=== PATIENT | female | born 1955 | race Caucasian/White ===

== ENCOUNTER 2020-03-23 13:48 | Inpatient (IN) | payer MEDICARE, MEDICAID ==
[~2020-03-23] VITALS: Ht 160 cm; Wt 46.5 kg
[2020-03-23] MEDS ORDERED: LACT1CAP19 PO (14:45)
[2020-03-23] MEDS ORDERED: POLY15DR27 OU (14:45)
[2020-03-23] MEDS ORDERED: RISP1TAB43 PO (14:45)
[2020-03-23] MEDS ORDERED: NYST15PO9 TP (14:45)
[2020-03-23] MEDS ORDERED: CLOT21CR7 VG (14:45)
[2020-03-23] MEDS ORDERED: ACET500T68 PO (14:45)
[2020-03-23] MEDS ORDERED: HALO5TAB PO (14:45)
[2020-03-23] MEDS ORDERED: POLY17PO5 PO (14:45)
[2020-03-23] MEDS ORDERED: DRON10CA5 PO (14:45)
[2020-03-23] MEDS ORDERED: ACET325T21 PO (14:45)
[2020-03-23] MEDS ORDERED: ACETAMINOPHEN 325 MG TABLET PO PRN (20:30)
[2020-03-23] MEDS ORDERED: HALOPERIDOL 5 MG TABLET PO PRN (20:30)
[2020-03-23] MEDS ORDERED: ACETAMINOPHEN 500 MG TABLET PO PRN (20:30)
[2020-03-23] MEDS ORDERED: POLYETHYLENE GLYCOL 3350 17 GM PACKET. PO PRN (20:30)
[2020-03-23] MEDS: LACTOBACILLUS RHAMNOSUS GG 1 CAPSULE. PO SCH (21:00)
[2020-03-23] MEDS: CLOTRIMAZOLE 1% VAGINAL CREAM 45GM TUBE. VG SCH (21:00)
[2020-03-23] MEDS: NYSTATIN TOPICAL POWDER 15GM BOTTLE. TP SCH (21:00)
[2020-03-23] MEDS: risperiDONE 1 MG TABLET. PO SCH (21:05)
[2020-03-23] MEDS: traZODone 100 MG TABLET. PO PRN ×2 (21:05→22:56)
[2020-03-23] MEDS: POLYVINYL ALCOHOL/POVIDONE/PF OPHTH SOLUTION DROPERETTE. OU SCH (21:15)
--- NOTE | 2020-03-23 21:55 | PDOC ---
Exam Note: Myke Note: Please also refer to the separate dictated note~for this date of service dictated separately.~Patient seen individually. Discussed the patient with Nursing staff reviewed the chart.~Reviewed interim history and current functioning. Reviewed vital signs,~Labs/ Radiology~and current medications noted below. Continue current treatment with the changes noted in the dictated addendum note Current Medications: Meds: Current Medications Medications (Trade) Dose Ordered Sig/Shila Route PRN Reason Start Time Stop Time Status Last Admin Dose Admin Risperidone (RisperDAL) 1 mg QHS PO 03/23/20 21:00 03/23/20 21:05 Olanzapine (ZyPREXA ZYDIS) 2.5 mg PRN Q2HR PRN PO PSYCHOSIS 03/23/20 20:45 03/23/20 21:05 Trazodone HCl (Desyrel) 100 mg PRN QHS PRN PO INSOMNIA, MAY REPEAT X1 03/23/20 20:45 03/23/20 21:05 I have reviewed the current psychotropics carefully including drug interactions. Risk benefit ratio favors no change other than as noted in my dictated progress note. CARLY AWAN MD Mar 23, 2020 21:55
[2020-03-23 22:17] VITALS: BP 146/82
[2020-03-23] MEDS ORDERED: METHYL SALICYLATE/MENTHOL TOPICAL OINTMENT 57GM TUBE. TP PRN (22:45)
[2020-03-23] MEDS ORDERED: MAG HYDROX/AL HYDROX/SIMETH 30 ML ORAL.SUSP PO PRN (22:45)
--- NOTE | 2020-03-23 23:27 | NUR ---
Admission Note with Justification for Admission to [facility] Patient admitted to [facility] for protective oversight for emergency stabilization of acute psychiatric crisis. Pt admitted from: [facility]/ [facility] Mode of arrival: EMS Accompanied By: EMS Precipitating behaviors that initiated intake and admission: hallucinating, verbally abusive toward staff, aggressive, screaming Description of failure of out patient attempts at stabilization in previous setting list behavior and medication trials: medication changes Behaviors and assessment findings upon admission: highly disorganized, restless, yelling out, hallucinating, delusional Plan: Admit for protective oversight for adjustment and stabilization of medications, behaviors and mood. Intense treatment regimen including groups, medication adjustments, therapy, consistent regimen for ADL's, self care, and sleep hygiene. Daily monitoring by Inpatient staff, Psychiatry, and Medical Physician.
[2020-03-24 05:49] VITALS: BP 116/67
[2020-03-24] MEDS: LACTOBACILLUS RHAMNOSUS GG 1 CAPSULE. PO SCH ×2 (08:06→20:20)
[2020-03-24] MEDS: POLYVINYL ALCOHOL/POVIDONE/PF OPHTH SOLUTION DROPERETTE. OU SCH ×3 (08:06→20:20)
[2020-03-24] MEDS: NICOTINE 7MG PATCH. TD SCH (08:09)
[2020-03-24 08:10] LABS: ALBUMIN 3.2 g/dL (3.4-5.0); ALBUMIN/GLOBULIN RATIO 0.8 (1.0-1.7); CALCIUM 9.7 mg/dL (8.5-10.1); CREATININE 0.9 mg/dL (0.6-1.0); GFR 63.2; POTASSIUM 3.6 mmol/L (3.5-5.1); TOTAL BILIRUBIN 0.2 mg/dL (0.2-1.0); TOTAL PROTEIN 7.1 g/dL (6.4-8.2)
[2020-03-24] MEDS: NYSTATIN TOPICAL POWDER 15GM BOTTLE. TP SCH ×2 (08:10→20:20)
[2020-03-24 08:23] LABS: BASO % 0 % (0-3); EOS # 0.1 x10^3/uL (0.0-0.7); EOS % 1 % (0-3); HEMATOCRIT 34.2 % (36.0-47.0); HEMOGLOBIN 11.2 g/dL (12.0-15.5); LYMPH % 35 % (24-48); MEAN CORPUSCULAR HEMOGLOBIN 32 pg (25-35); MEAN CORPUSCULAR HGB CONC 33 g/dL (31-37); MEAN CORPUSCULAR VOLUME 96 fL (79-100); MONO # 0.4 x10^3/uL (0.0-1.1); MONO % 6 % (0-9); NEUT # 3.4 x10^3uL (1.8-7.7); NEUT % 57 % (31-73); PLATELET COUNT 297 x10^3/uL (140-400); RED BLOOD COUNT 3.55 x10^6/uL (3.50-5.40); RED CELL DISTRIBUTION WIDTH 13.7 % (11.5-14.5); WHITE BLOOD COUNT 5.9 x10^3/uL (4.0-11.0)
[2020-03-24] MEDS: DRONABINOL 2.5 MG CAPSULE PO SCH ×2 (11:30→16:30)
--- NOTE | 2020-03-24 13:55 | CONS ---
DATE OF CONSULTATION: 03/24/2020 MEDICAL CONSULTATION AND HISTORY OF PRESENT ILLNESS ATTENDING PHYSICIAN: Dr. Kelley. HISTORY OF PRESENT ILLNESS: We are asked to see this patient for medical evaluation. The patient is age 64. She is from [facility]. She has increased agitation. 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 She is agitated, cursing out the medical staff, talking to people that are not there, and has behavioral issues. Much of the history is obtained from the old chart. There was a recent admission by Dr. Walls at [facility] following a fall. She was sent here for the [facility]. She has been very agitated, extremely aggressive to the staff. [facility]. PAST MEDICAL HISTORY: Gleaned from the old chart is significant for recent admission for right hip fracture open reduction and internal fixation, anxiety, depression, posterior cortical atrophy, osteoarthritis, and osteoporosis. She has cortical blindness. PAST SURGICAL HISTORY: Includes hysterectomy, bilateral wrist and forearm fracture after she fell and the right hip fracture, status post right hip hemiarthroplasty. ALLERGIES: SHE HAS ALLERGIES TO CODEINE, OXYCODONE. CURRENT MEDICATIONS: Reviewed. She was on Tylenol, Mylanta, artificial tears, clotrimazole, Marinol, Haldol, lactobacillus, multivitamin, Nicoderm patch, nystatin, Zyprexa, MiraLax, risperidone, and trazodone. FAMILY HISTORY: Unobtainable. SOCIAL HISTORY: She is residing at [facility]. She does smoke, the exact amount is unclear. She does not drink alcohol. Her daughter is the DPOA. REVIEW OF SYSTEMS: Unobtainable due to the patient's mentation. PHYSICAL EXAMINATION: GENERAL: When I saw her, this is an agitated female who was not aware of person, place, or time. INITIAL VITAL SIGNS: Here showed a blood pressure of 146/82 mmHg, pulse 75 and regular, temperature 97.3 degrees Fahrenheit, and her pulse oxygen saturation was 97% on room air. HEENT: Head is without trauma. Pupils are reactive. Sclerae are nonicteric. The oropharynx is clear. NECK: Supple, no bruits identified. LUNGS: Good breath sounds, otherwise shallow respirations. CARDIOVASCULAR: Showed regular heart tones. No gallops or murmurs. ABDOMEN: Nondistended, soft, nontender to palpation. No guarding or rebound tenderness. NEUROLOGIC: She has cortical blindness. Her tendon reflex is symmetrical in upper and lower extremities. She is able to move her extremities. We could not assess her gait. The rest of the detailed neurologic exam could not be done due to the patient's confusion and inability to cooperate. SKIN: Warm and dry. PERTINENT LABORATORY DATA: Her hemoglobin is 11.2 g/dL with a white count of 5900. Chemistry panel showed normal electrolytes, sodium 143 mEq, potassium 3.6 mEq per liter. Creatinine was 0.9 mg/dL, nonfasting blood sugar 113. Transaminases all within normal range. ASSESSMENT: 1. This 64-year-old female, half-way resident, has profound dementia with agitation. 2. She has a posterior cortical atrophy. 3. Clinical blindness. 4. Recent hip fracture with open reduction internal fixation. 5. Degenerative arthritis. 6. Generalized debilitation. RECOMMENDATIONS: 1. I reviewed her medications. 2. She is stable from a medical standpoint. 3. I reviewed her medications and the dosage is appropriate. I do not recommend any changes at this time. Thank you again for asking me to see this patient for medical consultation. We should gladly follow along closely during her inpatient stay. DONATO CHESTER MD DR: KENDRICK/evan JOB#: [id number] / [id number] CARLY Cheung MD, AHMED MD
--- NOTE | 2020-03-24 14:41 | RAD ---
EXAM: Head CT without contrast. HISTORY: Mental status changes. TECHNIQUE: Computed tomographic images of the head were obtained without contrast. *One or more of the following individualized dose reduction techniques were utilized for this examination: 1. Automated exposure control. 2. Adjustment of the mA and/or kV according to patient size. 3. Use of iterative reconstruction technique. COMPARISON: None. FINDINGS: There is no hemorrhage. There is moderate ventricular enlargement due to cerebral atrophy. There is decreased aeration within the cerebral white matter, likely due to chronic small vessel disease. There is no mass effect or midline shift. The orbits, paranasal sinuses mastoid air cells are unremarkable. No calvarial lesion is seen. IMPRESSION: 1. Moderate ventricular enlargement due to cerebral volume loss. This is advanced for patient age. The ventricular size is not greater than expected 4 cerebral volume to suggest hydrocephalus. 2. Bilateral cerebral white matter changes, likely due to chronic small vessel disease. 3. Note is made that MRI is more sensitive for acute infarction. Electronically signed by: Daphne Kim MD (03/24/2020 2:38 PM) [facility]
[2020-03-24 14:54] LABS: THYROID STIM HORMONE (TSH) 1.36 uIU/mL (0.358-3.740)
[2020-03-24 16:13] VITALS: BP 117/68
--- NOTE | 2020-03-24 18:03 | NUR ---
Pt slept a couple of hours in am. Since she has been awake, pt has been yelling out, whistling, cussing and yelling out for dtr Daphne. Pt has been restless and impulsive. Has been compliant with meds and redirection thus far.
[2020-03-24] MEDS: traZODone 100 MG TABLET. PO PRN ×2 (20:20→22:57)
[2020-03-24] MEDS: risperiDONE 1 MG TABLET. PO SCH (20:20)
[2020-03-24] MEDS: CLOTRIMAZOLE 1% VAGINAL CREAM 45GM TUBE. VG SCH (20:20)
--- NOTE | 2020-03-24 22:04 | PDOC ---
Exam Note: Myke Note: Please also refer to the separate dictated note~for this date of service dictated separately.~Patient seen individually. Discussed the patient with Nursing staff reviewed the chart.~Reviewed interim history and current functioning. Reviewed vital signs,~Labs/ Radiology~and current medications noted below. Continue current treatment with the changes noted in the dictated addendum note Assessment: Vital Signs/I&O: Vital Signs Date Time Temp Pulse Resp B/P (MAP) Pulse Ox O2 Delivery O2 Flow Rate FiO2 03/24/20 16:13 97.2 88 20 117/68 (84) 98 Room Air I & O 03/23/20 03/23/20 03/24/20 15:00 23:00 07:00 Intake Total 0 ml Balance 0 ml Labs: Laboratory Tests Test 03/24/20 07:35 White Blood Count 5.9 x10^3/uL (4.0-11.0) Red Blood Count 3.55 x10^6/uL (3.50-5.40) Hemoglobin 11.2 g/dL (12.0-15.5) L Hematocrit 34.2 % (36.0-47.0) L Mean Corpuscular Volume 96 fL (79-100) Mean Corpuscular Hemoglobin 32 pg (25-35) Mean Corpuscular Hemoglobin Concent 33 g/dL (31-37) Red Cell Distribution Width 13.7 % (11.5-14.5) Platelet Count 297 x10^3/uL (140-400) Neutrophils (%) (Auto) 57 % (31-73) Lymphocytes (%) (Auto) 35 % (24-48) Monocytes (%) (Auto) 6 % (0-9) Eosinophils (%) (Auto) 1 % (0-3) Basophils (%) (Auto) 0 % (0-3) Neutrophils # (Auto) 3.4 x10^3uL (1.8-7.7) Lymphocytes # (Auto) 2.0 x10^3/uL (1.0-4.8) Monocytes # (Auto) 0.4 x10^3/uL (0.0-1.1) Eosinophils # (Auto) 0.1 x10^3/uL (0.0-0.7) Basophils # (Auto) 0.0 x10^3/uL (0.0-0.2) Sodium Level 143 mmol/L (136-145) Potassium Level 3.6 mmol/L (3.5-5.1) Chloride Level 106 mmol/L (98-107) Carbon Dioxide Level 30 mmol/L (21-32) Anion Gap 7 (6-14) Blood Urea Nitrogen 12 mg/dL (7-20) Creatinine 0.9 mg/dL (0.6-1.0) Estimated GFR (Cockcroft-Gault) 63.2 BUN/Creatinine Ratio 13 (6-20) Glucose Level 113 mg/dL (70-99) H Calcium Level 9.7 mg/dL (8.5-10.1) Magnesium Level 2.0 mg/dL (1.8-2.4) Iron Level 45 ug/dL (50-170) L Total Iron Binding Capacity 213 ug/dL (250-450) L Iron Saturation 21 % (15-34) Total Bilirubin 0.2 mg/dL (0.2-1.0) Aspartate Amino Transferase (AST) 16 U/L (15-37) Alanine Aminotransferase (ALT) 21 U/L (14-59) Alkaline Phosphatase 103 U/L (46-116) Total Protein 7.1 g/dL (6.4-8.2) Albumin 3.2 g/dL (3.4-5.0) L Albumin/Globulin Ratio 0.8 (1.0-1.7) L Triglycerides Level 79 mg/dL (0-150) Cholesterol Level 216 mg/dL (0-200) H LDL Cholesterol, Calculated 141 mg/dL (0-100) H VLDL Cholesterol, Calculated 15 mg/dL (0-40) Non-HDL Cholesterol Calculated 156 mg/dL (0-129) H HDL Cholesterol 60 mg/dL (40-60) Cholesterol/HDL Ratio 3.0 Vitamin B12 Level > 2000 pg/mL (247-911) H 25-Hydroxy Vitamin D Total 26.5 ng/mL (30-100) L Thyroid Stimulating Hormone (TSH) 1.360 uIU/mL (0.358-3.740) Thyroxine (T4) 7.0 ug/dL (4.5-12.0) Total Triiodothyronine (TT3) 109 ng/dL (71-180) Treponema pallidum Antibody Nonreactive (Nonreactive) Current Medications: Meds: Current Medications Medications (Trade) Dose Ordered Sig/Shila Route PRN Reason Start Time Stop Time Status Last Admin Dose Admin Dronabinol (Marinol) 2.5 mg BIDACLD PO 03/24/20 11:30 03/24/20 16:30 Nicotine (Nicoderm Cq 7mg Patch) 1 patch DAILY TD 03/24/20 09:00 03/24/20 08:09 I have reviewed the current psychotropics carefully including drug interactions. Risk benefit ratio favors no change other than as noted in my dictated progress note. CARLY AWAN MD Mar 24, 2020 22:04
--- NOTE | 2020-03-24 22:45 | HP ---
ADMIT DATE: 03/24/2020 PSYCHIATRIC ADMISSION AND HISTORY AND EVALUATION On telehealth evaluation due to the COVID-19 restrictions. IDENTIFYING DATA: The patient is a 64-year-old female referred to us from [facility] where she was sent from the [facility] in [place] by Dr. Walls. She has a history of posterior cortical atrophy, legally blind, with worsening confusion and has been getting extremely delusional, verbally aggressive, hallucinating, unredirectable, screaming, cursing, both at the [facility] and at [facility]. Dr. Walls had attempted changes in her psychotropics, she has failed all of this, resulting in this referral. CHIEF COMPLAINT: "I am okay." The patient has been quite agitated, yelling, screaming since admission and staff had called me at night and quite disruptive all day during the day today as well. HISTORY OF PRESENT ILLNESS: The patient has a history of progressive memory deficits, paranoia, mood vacillation, sleep and appetite changes and diagnosis of posterior cortical atrophy and being legally blind, worsens her agitation. She also has major neurocognitive disorder, probably Alzheimer, vascular. No clear history of bipolar disorder. PAST PSYCHIATRIC HISTORY: As above. MEDICAL HISTORY: Positive for being legally blind, status post hip fracture repair 03/01/2020, dysphagia, aphasia, history of recurrent UTIs and she is a current smoker. ALLERGIES: CODEINE, OXYCODONE. CODE STATUS: DNR. DIET: Regular, finger foods due to eyesight problems. Medications, takes whole on spoon. UA positive at [facility]. She has completed a course on Rocephin. CURRENT PSYCHOTROPICS: Marinol 2.5 mg b.i.d. for appetite stimulation, Risperdal 1 mg at bedtime, Zyprexa p.r.n., trazodone 100 mg at bedtime p.r.n., may repeat x 1. FAMILY HISTORY: Noncontributory. SOCIAL HISTORY: No history of alcohol, drug abuse, physical, sexual or elder abuse. She is not known to be a perpetrator. REACTION TO HOSPITALIZATION: The patient oblivious of this. ASSETS: Supportive, living at the custodial, supportive family. REVIEW OF SYSTEMS: Legally blind. No CV, , GI, ENT system symptoms on review. MENTAL STATUS EXAMINATION: The patient is oriented to herself. Insight, judgment, recent and remote memory, attention, concentration, fund of knowledge poor, consistent with her diagnoses. IMPRESSION: Major neurocognitive disorder, multifactorial with delusion, depression, behavioral disturbance; posterior cortical atrophy; impulse control disorder; anxiety disorder, unspecified. Rest unchanged as above. PLAN: Admit to Geropsychiatry Unit at [facility]. I will see the patient daily individually from a psychiatric standpoint. Medical followup per Dr. Walls/Dr. Silveira. Continue the patient on her current psychotropics, Zyprexa was added p.r.n. Observe baseline, adjust further as clinically indicated. ESTIMATED LENGTH OF STAY: 10-12 days. DISPOSITION: Plans back to custodial when stable. MAN Gloria AWAN MD DR: JOANNA/evan JOB#: [id number] / [id number]
--- NOTE | 2020-03-24 23:22 | NUR ---
Nursing Note: Location of Patient during Assessment: Pt wandering in hallway at shift change. Behaviors Mood and Affect this shift: Anxious, very disorganized, restless and delusional with AH; yelling and calling out for others. Medication Compliant: Pt very disorganized with medications; attempted to administer them whole multiple times but pt would spit them out each time. Eventually, medications administered crushed in vanilla pudding although pt did not seem to enjoy this very much. Assessment Compliant: Pt disorganized and restless during assessment, having great difficulty following directions. Response After Interventions: Pt wandering, continues to be disorganized and restless with delusions and AH. PRN Zydis and repeat Trazodone administered around 2300.
[2020-03-25 02:06] LABS: HEMOGLOBIN A1C 5.6 % (4.8-5.6)
[2020-03-25 06:37] VITALS: BP 116/70
[2020-03-25] MEDS: POLYVINYL ALCOHOL/POVIDONE/PF OPHTH SOLUTION DROPERETTE. OU SCH ×3 (08:33→19:42)
[2020-03-25] MEDS: NICOTINE 7MG PATCH. TD SCH (08:33)
[2020-03-25] MEDS: LACTOBACILLUS RHAMNOSUS GG 1 CAPSULE. PO SCH ×2 (08:33→19:42)
[2020-03-25] MEDS: NYSTATIN TOPICAL POWDER 15GM BOTTLE. TP SCH ×2 (08:33→19:42)
--- NOTE | 2020-03-25 09:45 | NUR ---
ACTIVITY THERAPY ASSESSMENT Completed based on notes and interview. Pt. 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 Pt. was standing in front of her chair, mumbling/ talking mostly nonsensically throughout the entire interview. She was able to mention she was in a little pain today, while pointing to her hip area. Pt. struggled to answer questions, recall her last name, report why or where she was. She was unable to answer this/ that questions or yes/ no questions. She was able to say she goes by "Sultana," and throughout the interview, she clearly stated she wanted to smoke and wanted her purse. She talked with her eyes closed, staff later explaining she was visually impaired. Pt. needed physical support to sit in her chair and hand over hand to guide her drink/ straw to her mouth. Initial goal aimed to increase engagement: Pt. will participate in at least three individual Activity Therapy sessions before discharge.
--- NOTE | 2020-03-25 12:59 | NUR ---
Pt is confused, anxious, delusional, and it is questionable if she hallucinates as she is seeing impaired. She does respond to internal stimuli. She is compliant with her medication and assessment.
[2020-03-25] MEDS: DRONABINOL 2.5 MG CAPSULE PO SCH ×2 (13:03→16:07)
--- NOTE | 2020-03-25 13:22 | NUR ---
Patient has been provided with Practical Counseling for tobacco cessation. It included a face to face interaction and the following was discussed: Recognizing danger situations, Developing coping skills,Basic cessation information. Will follow for discharge needs and discharge planning.
--- NOTE | 2020-03-25 16:15 | NUR ---
Pt is delusional, disorganized, confused, hyperverbal and restless. She is unable to be redirected at this time. PRN gladys mendieta given.
[2020-03-25 16:20] VITALS: BP 133/89
[2020-03-25] MEDS ORDERED: CHOLECALCIFEROL (VITAMIN D3) 50,000 UNIT CAPSULE PO SCH (18:00)
[2020-03-25] MEDS: risperiDONE 1 MG TABLET. PO SCH (19:42)
[2020-03-25] MEDS: traZODone 100 MG TABLET. PO PRN (19:42)
[2020-03-25] MEDS: MIRTAZAPINE 7.5 MG TABLET. PO SCH (19:42)
[2020-03-25] MEDS: CLOTRIMAZOLE 1% VAGINAL CREAM 45GM TUBE. VG SCH (19:43)
--- NOTE | 2020-03-25 22:01 | PDOC ---
Exam Note: Myke Note: Please also refer to the separate dictated note~for this date of service dictated separately.~Patient seen individually. Discussed the patient with Nursing staff reviewed the chart.~Reviewed interim history and current functioning. Reviewed vital signs,~Labs/ Radiology~and current medications noted below. Continue current treatment with the changes noted in the dictated addendum note Assessment: Vital Signs/I&O: Vital Signs Date Time Temp Pulse Resp B/P (MAP) Pulse Ox O2 Delivery O2 Flow Rate FiO2 03/25/20 21:44 98.5 98 03/25/20 16:20 70 20 133/89 (104) 03/24/20 16:13 Room Air I & O 03/24/20 03/24/20 03/25/20 15:00 23:00 07:00 Intake Total 240 ml 340 ml Balance 240 ml 340 ml Current Medications: Meds: Current Medications Medications (Trade) Dose Ordered Sig/Shila Route PRN Reason Start Time Stop Time Status Last Admin Dose Admin Mirtazapine (Remeron) 7.5 mg QHS PO 03/25/20 21:00 03/25/20 19:42 I have reviewed the current psychotropics carefully including drug interactions. Risk benefit ratio favors no change other than as noted in my dictated progress note. Diagnosis: Problems: (1) Major neurocognitive disorder (2) Posterior cortical atrophy (3) Anxiety disorder, unspecified (4) Impulse control disorder, unspecified CARLY AWAN MD Mar 25, 2020 22:01
--- NOTE | 2020-03-25 23:37 | NUR ---
Nursing Note: Location of Patient during Assessment: Pt in [facility] at shift change. Behaviors Mood and Affect this shift: Pt restless, wandering, disorganized, and yelling out, responding to internal stimuli. Pt calling out for her daughter "Daphne". Medication Compliant: Pt compliant with medications administered crushed in pudding. Assessment Compliant: Pt cooperative with assessment and cares this evening. Response After Interventions: Pt assisted to her room by staff and helped into bed where she is currently resting with her eyes closed.
[2020-03-26 07:10] VITALS: BP 100/63
[2020-03-26 11:42] VITALS: BP 90/60
[2020-03-26] MEDS: NICOTINE 7MG PATCH. TD SCH (11:46)
--- NOTE | 2020-03-26 11:50 | NUR ---
Patient slept until 1100. When she got up she appeared diaphoretic. Vital signs obtained BP 90/60, P 110, O2 97% RA, Temp 98.[address] Walls on rounds. Held morning medications and only put nicotine patch on patient. Patient sitting in wheel chair with CNAs. Patient is very impulsive and unsteady. Addendum: 03/26/20 at 1235 by CORY MCFADDEN RN Spoke with Dr Kelley. After reviewing vital signs, patient behavior and medication list he gave the following orders: labs: CBC, CMP, CK d/c risperdal consult Dr. Del Toro - new onset twitching/jerking movement Dr. Alverto matos. Dr. Del Toro called and was informed of consult
[2020-03-26] MEDS: LACTOBACILLUS RHAMNOSUS GG 1 CAPSULE. PO SCH ×2 (11:53→21:26)
[2020-03-26] MEDS: POLYVINYL ALCOHOL/POVIDONE/PF OPHTH SOLUTION DROPERETTE. OU SCH ×3 (11:53→21:26)
[2020-03-26] MEDS: NYSTATIN TOPICAL POWDER 15GM BOTTLE. TP SCH ×2 (11:54→21:26)
[2020-03-26] MEDS: DRONABINOL 2.5 MG CAPSULE PO SCH ×2 (11:54→17:23)
[2020-03-26 15:07] LABS: ALBUMIN 3.3 g/dL (3.4-5.0); ALBUMIN/GLOBULIN RATIO 0.8 (1.0-1.7); CALCIUM 9.4 mg/dL (8.5-10.1); POTASSIUM 3.8 mmol/L (3.5-5.1); TOTAL BILIRUBIN 0.3 mg/dL (0.2-1.0); TOTAL PROTEIN 7.5 g/dL (6.4-8.2)
[2020-03-26 15:13] LABS: BASO % 0 % (0-3); EOS % 0 % (0-3); HEMOGLOBIN 11.8 g/dL (12.0-15.5); LYMPH # 0.8 x10^3/uL (1.0-4.8); LYMPH % 8 % (24-48); MEAN CORPUSCULAR HEMOGLOBIN 31 pg (25-35); MEAN CORPUSCULAR HGB CONC 32 g/dL (31-37); MEAN CORPUSCULAR VOLUME 99 fL (79-100); MONO # 0.5 x10^3/uL (0.0-1.1); MONO % 5 % (0-9); NEUT # 9.4 x10^3uL (1.8-7.7); NEUT % 88 % (31-73); PLATELET COUNT 277 x10^3/uL (140-400); RED BLOOD COUNT 3.74 x10^6/uL (3.50-5.40); RED CELL DISTRIBUTION WIDTH 14.3 % (11.5-14.5); WHITE BLOOD COUNT 10.8 x10^3/uL (4.0-11.0)
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
--- NOTE | 2020-03-26 16:12 | TX PLAN ---
Interdisciplinary Tx Plan Admission Information Mar 23, 2020 at 20:11 Legal Status (on Admission): Voluntary DPOA/Guardian Name: Daphne Marin Contact Other Contact Name: [facility] Other Contact Verified Code Status: DNR Allergies: Coded Allergies: codeine (Verified Allergy, Unknown, 03/23/20) oxycodone (Verified Allergy, Unknown, 03/23/20) Diagnoses Primary Diagnosis: Acute Delirium, Psychosis NOS Reasons for Admission: Aggressive, Delusions, Poor impulse control, Other Problem in Patient's Words: She has not been right since having her surgery and coming out of anesthia. Additional Admission Comments: According to the intake, pt was delusional, verbally aggressive, hallucinating and un-redirectable. Pt was screaming and cursing at staff Problems Active Problems: Delusional Impulsive Restless Inactive Problems: Medication compliance Pt Strengths/Limitations Ability for Harding: Poor Cognitive Functioning/Ability: Poor Communication Skills/Ability: Fair Financial Resources: Fair Insight/Judgement: Poor Intellectual Ability: Poor Physical Health: Poor Social Skills: Fair Stability in Family: Good Stability in School/Work: Poor Verbal Skills: Poor Discharge Criteria Discharge Criteria: No need for close observ., Adequate arrangements @DC, Improved behavior, Improved mood/thought Preliminary Discharge Plan Preliminary DC Plan: Current Living Arrange. Special Precautions Fall Risk: Moderate Initial D/C Plan Pt will discharge back to [facility] for continued rehab and possible LTC placement Identified Discharge Needs: Resources for continued psychiatric follow-up Currently Utilized Resources Currently Utilized Resources/P: Primary care physician Placement at [facility] Referrals Community Resources: Psychiatric services Identified Problems/Hx/Goals Objectives/Short-Term Goals Short Term Goals: Improved Social Skills, Medication Stabilization, Monitor Med Effects, Promote Coping Skill Short Term Goals in Patient's: N/A Interventions/Frequency Staff Interventions/Frequency&: Psychiatrist to assess pt at least 3x per week. Social Work to assess pt at least 2x per week (needs, barriers and discharge plans) Nursing to monitor medications, behaviors and complete 15 minute checks. 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 Education: Graduated high school (12th grade) Community Follow-up Primary Care physician Treatment Plan Explained Patient/Equipment Maintenance Tech had this treatment plan explained to him/her as indicated by the signature below and has been given the opportunity to ask questions and make suggestions: Date: Patient/Equipment Maintenance Tech Signature: Patient/Equipment Maintenance Tech Decline: No (Pt dtr is very active in pt care) MINGO SAL Mar 26, 2020 16:12
[2020-03-26 17:00] LABS: % BANDS 2 % (0-9); % LYMPHS 15 % (24-48); % MONOS 2 % (0-10); % SEGS 81 % (35-66)
[2020-03-26 17:01] LABS: PLT ESTIMATE ADEQUATE (ADEQUATE)
[2020-03-26] MEDS ORDERED: CHOLECALCIFEROL (VITAMIN D3) 50,000 UNIT CAPSULE PO SCH (18:00)
[2020-03-26] MEDS: MIRTAZAPINE 7.5 MG TABLET. PO SCH (21:26)
[2020-03-26] MEDS: CLOTRIMAZOLE 1% VAGINAL CREAM 45GM TUBE. VG SCH (21:26)
--- NOTE | 2020-03-26 22:01 | PDOC ---
Exam Note: Myke Note: Please also refer to the separate dictated note~for this date of service dictated separately.~Patient seen individually. Discussed the patient with Nursing staff reviewed the chart.~Reviewed interim history and current functioning. Reviewed vital signs,~Labs/ Radiology~and current medications noted below. Continue current treatment with the changes noted in the dictated addendum note Assessment: Vital Signs/I&O: Vital Signs Date Time Temp Pulse Resp B/P (MAP) Pulse Ox O2 Delivery O2 Flow Rate FiO2 03/26/20 11:42 98.3 110 17 90/60 (70) 97 Room Air I & O 03/25/20 03/25/20 03/26/20 14:59 22:59 06:59 Intake Total 560 ml 360 ml Balance 560 ml 360 ml Labs: Laboratory Tests Test 03/26/20 14:43 White Blood Count 10.8 x10^3/uL (4.0-11.0) Red Blood Count 3.74 x10^6/uL (3.50-5.40) Hemoglobin 11.8 g/dL (12.0-15.5) L Hematocrit 37.0 % (36.0-47.0) Mean Corpuscular Volume 99 fL (79-100) Mean Corpuscular Hemoglobin 31 pg (25-35) Mean Corpuscular Hemoglobin Concent 32 g/dL (31-37) Red Cell Distribution Width 14.3 % (11.5-14.5) Platelet Count 277 x10^3/uL (140-400) Neutrophils (%) (Auto) 88 % (31-73) H Lymphocytes (%) (Auto) 8 % (24-48) L Monocytes (%) (Auto) 5 % (0-9) Eosinophils (%) (Auto) 0 % (0-3) Basophils (%) (Auto) 0 % (0-3) Neutrophils # (Auto) 9.4 x10^3uL (1.8-7.7) H Lymphocytes # (Auto) 0.8 x10^3/uL (1.0-4.8) L Monocytes # (Auto) 0.5 x10^3/uL (0.0-1.1) Eosinophils # (Auto) 0.0 x10^3/uL (0.0-0.7) Basophils # (Auto) 0.0 x10^3/uL (0.0-0.2) Segmented Neutrophils % 81 % (35-66) H Band Neutrophils % 2 % (0-9) Lymphocytes % 15 % (24-48) L Monocytes % 2 % (0-10) Platelet Estimate Adequate (ADEQUATE) Sodium Level 140 mmol/L (136-145) Potassium Level 3.8 mmol/L (3.5-5.1) Chloride Level 104 mmol/L (98-107) Carbon Dioxide Level 31 mmol/L (21-32) Anion Gap 5 (6-14) L Blood Urea Nitrogen 15 mg/dL (7-20) Creatinine 1.0 mg/dL (0.6-1.0) Estimated GFR (Cockcroft-Gault) 56.0 BUN/Creatinine Ratio 15 (6-20) Glucose Level 114 mg/dL (70-99) H Calcium Level 9.4 mg/dL (8.5-10.1) Total Bilirubin 0.3 mg/dL (0.2-1.0) Aspartate Amino Transferase (AST) 19 U/L (15-37) Alanine Aminotransferase (ALT) 20 U/L (14-59) Alkaline Phosphatase 103 U/L (46-116) Creatine Kinase 76 U/L (26-192) Total Protein 7.5 g/dL (6.4-8.2) Albumin 3.3 g/dL (3.4-5.0) L Albumin/Globulin Ratio 0.8 (1.0-1.7) L Current Medications: Meds: Current Medications Medications (Trade) Dose Ordered Sig/Shila Route PRN Reason Start Time Stop Time Status Last Admin Dose Admin Vitamin D (Vitamin D3) 50,000 unit WEEKLY PO 03/26/20 18:00 03/26/20 17:24 I have reviewed the current psychotropics carefully including drug interactions. Risk benefit ratio favors no change other than as noted in my dictated progress note. Diagnosis: Problems: (1) Impulse control disorder, unspecified (2) Anxiety disorder, unspecified (3) Major neurocognitive disorder (4) Posterior cortical atrophy CARLY AWAN MD Mar 26, 2020 22:01
[2020-03-27 01:07] LABS: BASO % 0 % (0-3); EOS % 0 % (0-3); HEMATOCRIT 34.6 % (36.0-47.0); HEMOGLOBIN 11.3 g/dL (12.0-15.5); LYMPH # 1.2 x10^3/uL (1.0-4.8); LYMPH % 12 % (24-48); MEAN CORPUSCULAR HEMOGLOBIN 31 pg (25-35); MEAN CORPUSCULAR HGB CONC 33 g/dL (31-37); MEAN CORPUSCULAR VOLUME 96 fL (79-100); MONO # 0.6 x10^3/uL (0.0-1.1); MONO % 6 % (0-9); NEUT # 8.7 x10^3uL (1.8-7.7); NEUT % 82 % (31-73); PLATELET COUNT 256 x10^3/uL (140-400); RED BLOOD COUNT 3.61 x10^6/uL (3.50-5.40); RED CELL DISTRIBUTION WIDTH 14.3 % (11.5-14.5); WHITE BLOOD COUNT 10.6 x10^3/uL (4.0-11.0)
[2020-03-27 01:23] LABS: ALBUMIN/GLOBULIN RATIO 0.8 (1.0-1.7); CALCIUM 8.9 mg/dL (8.5-10.1); CREATININE 0.9 mg/dL (0.6-1.0); GFR 63.2; POTASSIUM 3.4 mmol/L (3.5-5.1); TOTAL BILIRUBIN 0.3 mg/dL (0.2-1.0); TOTAL PROTEIN 6.9 g/dL (6.4-8.2)
[2020-03-27 02:00] VITALS: BP 126/80
--- NOTE | 2020-03-27 04:09 | RAD ---
STUDY: CT chest without contrast INDICATION: Chest pain. Elevated d-dimer. COMPARISON: None available. TECHNIQUE: Helical CT imaging of the chest performed without the use of intravenous contrast. Sagittal and coronal reformats were obtained. One or more of the following individualized dose reduction techniques were utilized for this examination: 1. Automated exposure control 2. Adjustment of the mA and/or kV according to patient size 3. Use of iterative reconstruction technique. FINDINGS: Vasculature: Extensive calcific coronary artery disease. Nonaneurysmal aorta. The main pulmonary artery is normal in transverse dimension at 2.4 cm. Right more so than left carotid calcific atherosclerosis. Mediastinum/jeromy: Unremarkable. Lungs: No airspace infiltrate concerning for pneumonia. No pleural effusion or pneumothorax. There appear to be changes of emphysema. Pleural-based nodule at the right middle lobe, image 39 series 3, measures 4 mm. Neck/axilla/chest wall: No axillary adenopathy. Unremarkable thyroid. Relatively symmetric breast tissue. Bones: Exaggeration of thoracic kyphosis. Mild chronic wedging at the site of kyphotic curvature. Multifactorial degenerative changes. Osteopenia. Upper abdomen: Motion degraded. Apparent haziness of the pericolonic fat at the splenic flexure. There appears to be some fluid within the colonic lumen at the splenic flexure. IMPRESSION: 1. No acute abnormality to account for the patient's chest pain. 2. Extensive calcific coronary artery disease. Dense calcific atherosclerosis in the region of the right carotid bifurcation. 3. A pleural-based nodule at the right middle lobe measuring 4 mm. This does not meet size criteria for dedicated follow-up unless there are risk factors for lung malignancy which may be the case as there appears to be emphysema. Optional CT follow-up could be performed in 12 months. 4. Evaluation of the upper abdomen is made difficult due to motion but there may be some inflammation of the pericolonic fat at the splenic flexure. Additionally, apparent fluid within the colon at this location as can be seen with a diarrheal state. Recommend correlation for any symptoms referrable to the abdomen, particularly the bowel. 5. Osteopenia and multifocal degenerative changes on a background of exaggerated thoracic process. Electronically signed by: VALERIA AGUILAR MD (03/27/2020 4:06 AM) [id number]
--- NOTE | 2020-03-27 04:19 | NUR ---
Nursing Note the patient was located in her room for her assessment and medication pass. The patient was very disorganized and agitated. The patient was yelling out or people that are not there as well as intermittent episodes of tearfulness. The patient was noted to be hot to the touch when assessed by a STORAGE GARAGE MANAGER and this nurse was informed. The patient was found to have a fever of 100.7 and a pulse of 127@0138. Dr. Walls was called and orders for blood cultures, Chest CT, Bilateral lower extremity Venous Doppler ultrasound, CMP, CBC, Urine and C-Diff test. The patient was compliant with cares and assessments. The patients vitals were re assessed@0415 with a current temp of 101.4, pulse of 100, BP 96/64, and O2 of 94. The patient was given PRN Zyprexa prior to arriving in radiology. THe patient is currently resting in her bed.
[2020-03-27] MEDS ORDERED: NICO1PAT25 TD (04:48)
[2020-03-27] MEDS ORDERED: MIRT7.5T8 PO (04:49)
[2020-03-27] MEDS ORDERED: TRAZ-125 PO (04:51)
[2020-03-27] MEDS ORDERED: OLAN5TAB99 PO (04:52)
[2020-03-27] MEDS ORDERED: MAG-83 PO (04:56)
[2020-03-27] MEDS ORDERED: CHOL500021 PO (04:57)
--- NOTE | 2020-03-27 06:56 | RAD ---
STUDY: US VENOUS LOWER EXT BILATERAL INDICATION: Elevated d-dimer. Recent hip surgery. TECHNIQUE: Color-flow and pulsed wave duplex ultrasound with compression of venous structures of the bilateral lower extremities. COMPARISON: None. FINDINGS: Duplex ultrasound with compression of the deep venous structures of the bilateral lower extremities from the common femoral vein through the popliteal vein is negative for DVT. The posterior tibial veins are segmentally visualized and patent where seen. The peroneal veins were not able to be evaluated due to limitations with patient positioning. Normal venous waveforms and augmentation are noted throughout. IMPRESSION: No deep venous thrombosis seen throughout either lower extremity noting that the peroneal veins were unable to be assessed. Electronically signed by: VALERIA AGUILAR MD (03/27/2020 6:53 AM) [id number]
--- NOTE | 2020-03-27 06:59 | NUR ---
Tobacco Discharge Note [facility] Tobacco Hotline called with patient prior to discharge, YES Tobacco cessation medication listed with current medications for discharge. YES Transition Record was faxed to follow-up provider with the following elements: Reason for admission, procedures, tests, principal diagnosis, pending studies, patient instructions, 20/02 contact information for unit, phone number to obtain pending test results, plan for follow-up care, physician follow-up, advanced directive information, and medication list with dose, duration and instructions. This information was included in the following documents: History and physical, lab results, study results, progress notes, social work planning form, DC instruction form, patient visit summary, and medication reconciliation form. Date & time record faxed:0700 03/27/20 Record faxed to: ICU [facility] Record discussed with/ report given to: William VENTURA ICU
--- NOTE | 2020-03-27 07:00 | PDOC ---
Exam Note: Myke Note: This note is a late entry for 03/25/2020 covers elements not covered in my initial note. Subjective: The patient was evaluated face to face in the evening of 03/25/2020 with Dana VENTURA. The patient slept 3 hours previous night. Previous night she seemed to be responding to internal stimuli, quite disorganized, confused without visual hallucinations, hyperverbal at times. Review of Systems: No CV, , pulmonary, ENT system symptoms on review but she is blind with marked impairment of ambulation. Reliability poor. She was in the West hallway on the floor, disorganized, hyperverbal. Mental Status Exam: Oriented to herself. Insight and judgment, recent and remote memory, attention and concentration, fund of knowledge is poor consistent with her diagnoses. Laboratory Data: Reviewed. Impression: Posterior cortical atrophy. Anxiety disorder unspecified. Impulse control disorder unspecified. Psychotic disorder unspecified. Plan: Start Remeron 7.5 mg h.s. to help with insomnia. Continue rest unchanged for now. Assessment: Vital Signs/I&O: Vital Signs Date Time Temp Pulse Resp B/P (MAP) Pulse Ox O2 Delivery O2 Flow Rate FiO2 03/27/20 02:00 100.7 127 16 126/80 (95) 97 Room Air I & O 03/26/20 03/26/20 03/27/20 15:00 23:00 07:00 Intake Total 600 ml 120 ml Balance 600 ml 120 ml Labs: Laboratory Tests Test 03/26/20 14:43 03/27/20 00:50 White Blood Count 10.8 x10^3/uL (4.0-11.0) 10.6 x10^3/uL (4.0-11.0) Red Blood Count 3.74 x10^6/uL (3.50-5.40) 3.61 x10^6/uL (3.50-5.40) Hemoglobin 11.8 g/dL (12.0-15.5) L 11.3 g/dL (12.0-15.5) L Hematocrit 37.0 % (36.0-47.0) 34.6 % (36.0-47.0) L Mean Corpuscular Volume 99 fL (79-100) 96 fL (79-100) Mean Corpuscular Hemoglobin 31 pg (25-35) 31 pg (25-35) Mean Corpuscular Hemoglobin Concent 32 g/dL (31-37) 33 g/dL (31-37) Red Cell Distribution Width 14.3 % (11.5-14.5) 14.3 % (11.5-14.5) Platelet Count 277 x10^3/uL (140-400) 256 x10^3/uL (140-400) Neutrophils (%) (Auto) 88 % (31-73) H 82 % (31-73) H Lymphocytes (%) (Auto) 8 % (24-48) L 12 % (24-48) L Monocytes (%) (Auto) 5 % (0-9) 6 % (0-9) Eosinophils (%) (Auto) 0 % (0-3) 0 % (0-3) Basophils (%) (Auto) 0 % (0-3) 0 % (0-3) Neutrophils # (Auto) 9.4 x10^3uL (1.8-7.7) H 8.7 x10^3uL (1.8-7.7) H Lymphocytes # (Auto) 0.8 x10^3/uL (1.0-4.8) L 1.2 x10^3/uL (1.0-4.8) Monocytes # (Auto) 0.5 x10^3/uL (0.0-1.1) 0.6 x10^3/uL (0.0-1.1) Eosinophils # (Auto) 0.0 x10^3/uL (0.0-0.7) 0.0 x10^3/uL (0.0-0.7) Basophils # (Auto) 0.0 x10^3/uL (0.0-0.2) 0.0 x10^3/uL (0.0-0.2) Segmented Neutrophils % 81 % (35-66) H Band Neutrophils % 2 % (0-9) Lymphocytes % 15 % (24-48) L Monocytes % 2 % (0-10) Platelet Estimate Adequate (ADEQUATE) Sodium Level 140 mmol/L (136-145) 141 mmol/L (136-145) Potassium Level 3.8 mmol/L (3.5-5.1) 3.4 mmol/L (3.5-5.1) L Chloride Level 104 mmol/L (98-107) 105 mmol/L (98-107) Carbon Dioxide Level 31 mmol/L (21-32) 26 mmol/L (21-32) Anion Gap 5 (6-14) L 10 (6-14) Blood Urea Nitrogen 15 mg/dL (7-20) 14 mg/dL (7-20) Creatinine 1.0 mg/dL (0.6-1.0) 0.9 mg/dL (0.6-1.0) Estimated GFR (Cockcroft-Gault) 56.0 63.2 BUN/Creatinine Ratio 15 (6-20) 16 (6-20) Glucose Level 114 mg/dL (70-99) H 120 mg/dL (70-99) H Calcium Level 9.4 mg/dL (8.5-10.1) 8.9 mg/dL (8.5-10.1) Total Bilirubin 0.3 mg/dL (0.2-1.0) 0.3 mg/dL (0.2-1.0) Aspartate Amino Transferase (AST) 19 U/L (15-37) 17 U/L (15-37) Alanine Aminotransferase (ALT) 20 U/L (14-59) 19 U/L (14-59) Alkaline Phosphatase 103 U/L (46-116) 90 U/L (46-116) Creatine Kinase 76 U/L (26-192) Total Protein 7.5 g/dL (6.4-8.2) 6.9 g/dL (6.4-8.2) Albumin 3.3 g/dL (3.4-5.0) L 3.0 g/dL (3.4-5.0) L Albumin/Globulin Ratio 0.8 (1.0-1.7) L 0.8 (1.0-1.7) L D-Dimer (Celi) 10.37 mg/L (0.00-0.50) H Current Medications: Meds: Current Medications Medications (Trade) Dose Ordered Sig/Shila Route PRN Reason Start Time Stop Time Status Last Admin Dose Admin Vitamin D (Vitamin D3) 50,000 unit WEEKLY PO 03/26/20 18:00 03/26/20 17:24 I have reviewed the current psychotropics carefully including drug interactions. Risk benefit ratio favors no change other than as noted in my dictated progress note. Diagnosis: Problems: (1) Impulse control disorder, unspecified (2) Anxiety disorder, unspecified (3) Major neurocognitive disorder (4) Posterior cortical atrophy CARLY AWAN MD Mar 27, 2020 07:00
--- NOTE | 2020-03-27 07:28 | PDOC ---
Exam Note: Myke Note: This note is a late entry for 03/26/2020 covers elements not covered in my initial note. Subjective: The patient was evaluated face to face in the morning of 03/26/2020 for treatment team meeting with Aroldo (social service staff), Delaney, activity therapy, and Annmarie VENTURA along with the patients daughter Daphne attended the conference. She was also seen individually in the evening. We had a lengthy discussion. Daughter gave extensive history how the patient was having short-term memory deficits and repeated visits to [facility]rology Clinic at . 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 The patient slept 6-3/4 hours previous night. She is anxious, restless, somewhat jumpy, yelling at times, hyperverbal, hallucinating, delusional as a fall risk. Daughter gave appr oximate 10-year history of poor vision, progressively getting worse and then the progressive dementia. Review of Systems: Ambulation impaired in wheelchair with poor vision but she is unable to specify this. The patient remains hyperverbal, confused. No CV, , pulmonary, ENT system symptoms on review. Mental Status Exam: Oriented to herself. Insight and judgment, recent and remote memory, attention and concentration, fund of knowledge is poor consistent with her diagnoses. Laboratory Data: Reviewed. Impression: Posterior cortical atrophy. Major neurocognitive disorder multifactorial with delusion and depression. Anxiety disorder unspecified. Impulse control disorder unspecified. Plan: No change from initial note. Maintain Marinol for appetite stimulation. Nursing staff had called me as an emergency. The patient seemed more disorganized. There is a question as she was having marked sweating whether she might early beginnings of neuroleptic malignant syndrome. No temperature is noted. We will check CBC, CMP, creatinine kinase and go ahead and stop the Risperdal for now. Maintain Marinol and Remeron 7.5 mg h.s. and trazodone. Defer medical management to Dr. Walls. Adjust further as clinically indicated. Assessment: Vital Signs/I&O: Vital Signs Date Time Temp Pulse Resp B/P (MAP) Pulse Ox O2 Delivery O2 Flow Rate FiO2 03/27/20 02:00 100.7 127 16 126/80 (95) 97 Room Air I & O 03/26/20 03/26/20 03/27/20 15:00 23:00 07:00 Intake Total 600 ml 120 ml Balance 600 ml 120 ml Labs: Laboratory Tests Test 03/26/20 14:43 03/27/20 00:50 White Blood Count 10.8 x10^3/uL (4.0-11.0) 10.6 x10^3/uL (4.0-11.0) Red Blood Count 3.74 x10^6/uL (3.50-5.40) 3.61 x10^6/uL (3.50-5.40) Hemoglobin 11.8 g/dL (12.0-15.5) L 11.3 g/dL (12.0-15.5) L Hematocrit 37.0 % (36.0-47.0) 34.6 % (36.0-47.0) L Mean Corpuscular Volume 99 fL (79-100) 96 fL (79-100) Mean Corpuscular Hemoglobin 31 pg (25-35) 31 pg (25-35) Mean Corpuscular Hemoglobin Concent 32 g/dL (31-37) 33 g/dL (31-37) Red Cell Distribution Width 14.3 % (11.5-14.5) 14.3 % (11.5-14.5) Platelet Count 277 x10^3/uL (140-400) 256 x10^3/uL (140-400) Neutrophils (%) (Auto) 88 % (31-73) H 82 % (31-73) H Lymphocytes (%) (Auto) 8 % (24-48) L 12 % (24-48) L Monocytes (%) (Auto) 5 % (0-9) 6 % (0-9) Eosinophils (%) (Auto) 0 % (0-3) 0 % (0-3) Basophils (%) (Auto) 0 % (0-3) 0 % (0-3) Neutrophils # (Auto) 9.4 x10^3uL (1.8-7.7) H 8.7 x10^3uL (1.8-7.7) H Lymphocytes # (Auto) 0.8 x10^3/uL (1.0-4.8) L 1.2 x10^3/uL (1.0-4.8) Monocytes # (Auto) 0.5 x10^3/uL (0.0-1.1) 0.6 x10^3/uL (0.0-1.1) Eosinophils # (Auto) 0.0 x10^3/uL (0.0-0.7) 0.0 x10^3/uL (0.0-0.7) Basophils # (Auto) 0.0 x10^3/uL (0.0-0.2) 0.0 x10^3/uL (0.0-0.2) Segmented Neutrophils % 81 % (35-66) H Band Neutrophils % 2 % (0-9) Lymphocytes % 15 % (24-48) L Monocytes % 2 % (0-10) Platelet Estimate Adequate (ADEQUATE) Sodium Level 140 mmol/L (136-145) 141 mmol/L (136-145) Potassium Level 3.8 mmol/L (3.5-5.1) 3.4 mmol/L (3.5-5.1) L Chloride Level 104 mmol/L (98-107) 105 mmol/L (98-107) Carbon Dioxide Level 31 mmol/L (21-32) 26 mmol/L (21-32) Anion Gap 5 (6-14) L 10 (6-14) Blood Urea Nitrogen 15 mg/dL (7-20) 14 mg/dL (7-20) Creatinine 1.0 mg/dL (0.6-1.0) 0.9 mg/dL (0.6-1.0) Estimated GFR (Cockcroft-Gault) 56.0 63.2 BUN/Creatinine Ratio 15 (6-20) 16 (6-20) Glucose Level 114 mg/dL (70-99) H 120 mg/dL (70-99) H Calcium Level 9.4 mg/dL (8.5-10.1) 8.9 mg/dL (8.5-10.1) Total Bilirubin 0.3 mg/dL (0.2-1.0) 0.3 mg/dL (0.2-1.0) Aspartate Amino Transferase (AST) 19 U/L (15-37) 17 U/L (15-37) Alanine Aminotransferase (ALT) 20 U/L (14-59) 19 U/L (14-59) Alkaline Phosphatase 103 U/L (46-116) 90 U/L (46-116) Creatine Kinase 76 U/L (26-192) Total Protein 7.5 g/dL (6.4-8.2) 6.9 g/dL (6.4-8.2) Albumin 3.3 g/dL (3.4-5.0) L 3.0 g/dL (3.4-5.0) L Albumin/Globulin Ratio 0.8 (1.0-1.7) L 0.8 (1.0-1.7) L D-Dimer (Celi) 10.37 mg/L (0.00-0.50) H Current Medications: Meds: Current Medications Medications (Trade) Dose Ordered Sig/Shila Route PRN Reason Start Time Stop Time Status Last Admin Dose Admin Vitamin D (Vitamin D3) 50,000 unit WEEKLY PO 03/26/20 18:00 03/27/20 07:16 DC 03/26/20 17:24 I have reviewed the current psychotropics carefully including drug interactions. Risk benefit ratio favors no change other than as noted in my dictated progress note. Diagnosis: Problems: (1) Impulse control disorder, unspecified (2) Anxiety disorder, unspecified (3) Major neurocognitive disorder (4) Posterior cortical atrophy CARLY AWAN MD Mar 27, 2020 07:28
--- NOTE | 2020-03-27 22:02 | PDOC ---
Exam Note: Myke Note: Please also refer to the separate dictated note~for this date of service dictated separately.~Patient seen individually. Discussed the patient with Nursing staff reviewed the chart.~Reviewed interim history and current functioning. Reviewed vital signs,~Labs/ Radiology~and current medications noted below. Continue current treatment with the changes noted in the dictated addendum note Assessment: Vital Signs/I&O: Vital Signs Date Time Temp Pulse Resp B/P (MAP) Pulse Ox O2 Delivery O2 Flow Rate FiO2 03/27/20 02:00 100.7 127 16 126/80 (95) 97 Room Air I & O 03/26/20 03/26/20 03/27/20 15:00 23:00 07:00 Intake Total 600 ml 120 ml Balance 600 ml 120 ml Labs: Laboratory Tests Test 03/27/20 00:50 03/27/20 01:30 White Blood Count 10.6 x10^3/uL (4.0-11.0) Red Blood Count 3.61 x10^6/uL (3.50-5.40) Hemoglobin 11.3 g/dL (12.0-15.5) L Hematocrit 34.6 % (36.0-47.0) L Mean Corpuscular Volume 96 fL (79-100) Mean Corpuscular Hemoglobin 31 pg (25-35) Mean Corpuscular Hemoglobin Concent 33 g/dL (31-37) Red Cell Distribution Width 14.3 % (11.5-14.5) Platelet Count 256 x10^3/uL (140-400) Neutrophils (%) (Auto) 82 % (31-73) H Lymphocytes (%) (Auto) 12 % (24-48) L Monocytes (%) (Auto) 6 % (0-9) Eosinophils (%) (Auto) 0 % (0-3) Basophils (%) (Auto) 0 % (0-3) Neutrophils # (Auto) 8.7 x10^3uL (1.8-7.7) H Lymphocytes # (Auto) 1.2 x10^3/uL (1.0-4.8) Monocytes # (Auto) 0.6 x10^3/uL (0.0-1.1) Eosinophils # (Auto) 0.0 x10^3/uL (0.0-0.7) Basophils # (Auto) 0.0 x10^3/uL (0.0-0.2) D-Dimer (Celi) 10.37 mg/L (0.00-0.50) H Sodium Level 141 mmol/L (136-145) Potassium Level 3.4 mmol/L (3.5-5.1) L Chloride Level 105 mmol/L (98-107) Carbon Dioxide Level 26 mmol/L (21-32) Anion Gap 10 (6-14) Blood Urea Nitrogen 14 mg/dL (7-20) Creatinine 0.9 mg/dL (0.6-1.0) Estimated GFR (Cockcroft-Gault) 63.2 BUN/Creatinine Ratio 16 (6-20) Glucose Level 120 mg/dL (70-99) H Calcium Level 8.9 mg/dL (8.5-10.1) Total Bilirubin 0.3 mg/dL (0.2-1.0) Aspartate Amino Transferase (AST) 17 U/L (15-37) Alanine Aminotransferase (ALT) 19 U/L (14-59) Alkaline Phosphatase 90 U/L (46-116) Total Protein 6.9 g/dL (6.4-8.2) Albumin 3.0 g/dL (3.4-5.0) L Albumin/Globulin Ratio 0.8 (1.0-1.7) L Clostridioides difficile Toxin (PCR) Positive (NEGATIVE) H Current Medications: I have reviewed the current psychotropics carefully including drug interactions. Risk benefit ratio favors no change other than as noted in my dictated progress note. Diagnosis: Problems: (1) Impulse control disorder, unspecified (2) Anxiety disorder, unspecified (3) Major neurocognitive disorder (4) Posterior cortical atrophy CARLY AWAN MD Mar 27, 2020 22:02
--- NOTE | 2020-03-29 21:16 | DS ---
DATE OF DISCHARGE: 03/27/2020 DISCHARGE SUMMARY AND PSYCHIATRIC PROGRESS NOTE This late entry for 03/27/2020 covers the elements not covered in my initial note. IDENTIFYING DATA: The patient is a 64-year-old female referred to us from [facility] where she resides and was getting increasingly delusional, verbally aggressive, hallucinating, unredirectable, screaming, cursing at staff. She had failed outpatient psychiatric interventions, referred by primary care physician, Dr. Walls. Initially went to [facility] and then referred to us for inpatient psychiatric stabilization. The patient does have a history of posterior cortical atrophy with worsening delusions, hallucinations, agitation, and aggression. SIGNIFICANT FINDINGS AND CLINICAL COURSE: Following admission, the patient was seen daily individually by myself from a psychiatric standpoint, medical followup with Dr. Walls/Dr. Silveira. We obtained a fairly detailed past psychiatric history from the patient's daughter who is very knowledgeable on the patient's history, diagnosis of posterior cortical atrophy with worsening short-term memory deficits, hallucinations, delusions, aggression. Adjustments were made in her psychotropics, but she continued to have significant mood lability, yelling, cursing, actively hallucinating, some of which could be explained by the posterior cortical atrophy and visual misperceptions consequent to this. She seemed to be gradually showing some response to changes in her psychotropics and was sleeping better on Remeron 7.5 mg at bedtime, remained on Marinol 2.5 mg b.i.d. for appetite stimulation, Risperdal 1 mg at bedtime for psychotic symptoms, trazodone 100 mg at bedtime p.r.n., november repeat x 1. She remained hyperverbal. REVIEW OF SYSTEMS: Poor vision, impaired ambulation, in wheelchair. No CV, , pulmonary, ENT system symptoms on review. MENTAL STATUS EXAM: Oriented to herself. Insight, judgment, recent and remote memory, attention, concentration, fund of knowledge poor, consistent with her diagnosis. Gradually showing some response to treatment, but spiked a fever of 104. There was a COVID-19 positive patient detected on our unit and given this and a questionable history of sepsis, she was transitioned to the ICU per Dr. Walls for further medical stabilization. CONDITION AT DISCHARGE: Some improvement from a psychiatric standpoint, but medically compromised. FINAL DIAGNOSES: Major neurocognitive disorder, vascular with delusion, depression, behavioral disturbance, posterior cortical atrophy, anxiety disorder, unspecified; impulse control disorder, unspecified; possible sepsis. Rest unchanged from admission. DISCHARGE MEDICATIONS: Please refer to the [facility]. DISCHARGE INSTRUCTIONS: Psychiatric and medical followup in the ICU. MAN Gloria AWAN MD DR: JOANNA/evan JOB#: [id number] / [id number]
== END 2020-03-27 07:16 | disposition short-term general hospital (02) | DRG 56 ==
LOC: GEROPSY 20:11
PROVIDERS: ADMIT Psychiatry & Neurology Psychiatry; ATTEND Psychiatry & Neurology Psychiatry
DX: G30.9 Alzheimer's disease, unspecified (principal); A41.9 Sepsis, unspecified organism; F01.51 Vascular dementia, unspecified severity, with behavioral disturbance; R47.01 Aphasia; M19.90 Unspecified osteoarthritis, unspecified site; F32.9 Major depressive disorder, single episode, unspecified; F41.9 Anxiety disorder, unspecified; F63.9 Impulse disorder, unspecified; Z20.828 Contact with and (suspected) exposure to other viral communicable diseases; H54.8 Legal blindness, as defined in USA; M81.0 Age-related osteoporosis without current pathological fracture; Z66 Do not resuscitate; Z79.899 Other long term (current) drug therapy; Z87.440 Personal history of urinary (tract) infections; Z87.891 Personal history of nicotine dependence; Z90.710 Acquired absence of both cervix and uterus; Z91.81 History of falling; G31.9 Degenerative disease of nervous system, unspecified
CPT/HCPCS: 36415; 70450; 71250; 80053; 80061; 82306; 82550; 82607; 83036; 83540; 83550; 83735; 84436; 84443; 84480; 85007; 85025; 85379; 86592; 87040; 87493; 93970; Q0167; U0003-CS

== ENCOUNTER 2020-03-27 08:20 | Inpatient (IN) | payer MEDICARE, MEDICAID ==
[~2020-03-27] VITALS: Ht 160 cm; Wt 55.6 kg
[2020-03-27] VITALS (16 sets, daily range): BP systolic 89–165; BP diastolic 56–110
--- NOTE | 2020-03-27 07:15 | NUR ---
The patient, CHESTER HENRIQUEZ, 64 y/o, F admitted by BALAJI ISRAEL MD, was given written information regarding hospital policies, unit procedures and contact persons. Valuables were checked. Pt was wheeled down to ICU 4 by staff member and made comfortable into bed. pt came from [facility] unit.
[~2020-03-27 08:20] MED LIST: ACET325T21 PO; ACET500T68 PO; CHOL500021 PO; CLOT21CR7 VG; DRON10CA5 PO; HALO5TAB PO; LACT1CAP19 PO; MAG-83 PO; MIRT7.5T8 PO; NICO1PAT25 TD; NYST15PO9 TP; OLAN5TAB99 PO; POLY15DR27 OU; POLY17PO5 PO; RISP1TAB43 PO; TRAZ-125 PO
[2020-03-27] MEDS ORDERED: IV NORMAL SALINE 1,000ML 1,000 ML IV SCH (08:31)
[2020-03-27] MEDS ORDERED: IV NORMAL SALINE 1,000ML 1,000 ML IV ONE (08:45)
[2020-03-27] MEDS ORDERED: POLYVINYL ALCOHOL 1.4% OPHTH SOLUTION 15ML BOTTLE. OU SCH (09:00)
[2020-03-27] MEDS ORDERED: LACTOBACILLUS RHAMNOSUS GG 1 CAPSULE. PO SCH (09:00)
[2020-03-27] MEDS ORDERED: MAG HYDROX/AL HYDROX/SIMETH 30 ML ORAL.SUSP PO PRN (09:00)
[2020-03-27 10:28] LABS: HEMATOCRIT 35.6 % (36.0-47.0); HEMOGLOBIN 11.6 g/dL (12.0-15.5); RED BLOOD COUNT 3.71 x10^6/uL (3.50-5.40); RED CELL DISTRIBUTION WIDTH 14.2 % (11.5-14.5); WHITE BLOOD COUNT 14.4 x10^3/uL (4.0-11.0)
[2020-03-27 10:41] LABS: ALBUMIN 2.9 g/dL (3.4-5.0); ALBUMIN/GLOBULIN RATIO 0.7 (1.0-1.7); CALCIUM 9.1 mg/dL (8.5-10.1); MAGNESIUM 2.1 mg/dL (1.8-2.4); POTASSIUM 3.5 mmol/L (3.5-5.1); TOTAL BILIRUBIN 0.3 mg/dL (0.2-1.0); TOTAL PROTEIN 6.9 g/dL (6.4-8.2)
[2020-03-27 10:48] LABS: AMORPHOUS SEDIMENT,UR PRESENT /HPF; BACTERIA,URINE 0 /HPF (0-FEW); BILIRUBIN,URINE NEG (NEG); CLARITY,URINE CLEAR; COLOR,URINE YELLOW; GLUCOSE,URINE NEG (NEG); HYALINE CASTS, URINE FEW /HPF; NITRITE,URINE NEG (NEG); SQUAMOUS EPITHELIAL CELL,UR OCC /LPF; UROBILINOGEN,URINE 0.2 mg/dL (0.2 mg/dL)
[2020-03-27] MEDS: PIPERACILLIN/TAZOBACTAM 3.375 GM in IV NORMAL SALINE 50ML 50 ML IV SCH ×3 (12:13→23:26)
[2020-03-27] MEDS: ACETAMINOPHEN 325 MG TABLET PO PRN (12:16)
[2020-03-27] MEDS: NICOTINE 7MG PATCH. TD SCH (12:16)
[2020-03-27] MEDS: CHOLECALCIFEROL (VITAMIN D3) 50,000 UNIT CAPSULE PO SCH (12:16)
[2020-03-27] MEDS: NYSTATIN TOPICAL POWDER 15GM BOTTLE. TP SCH ×2 (12:16→20:41)
[2020-03-27] MEDS: ENOXAPARIN ** NOTE DOSE ** SYRINGE SQ SCH ×2 (12:16→20:15)
--- NOTE | 2020-03-27 14:30 | NUR ---
SW returned call to pt dtr, Daphne, to tell her to cancel the [facility] appointment that she mentioned on SW voicemail. Instead of having that conversation, pt began by telling SW that she is livid. SW questioned why and empathized knowing that pt was sent to ICU this morning. Pt dtr questioned who's responsibility is it to call the families when changes like that occur. SW explained that typically the nurse on pt case would be able to call the family to alert them of the change. Pt dtr reports that no one called her to tell her and her it was 1400 and she just heard from Dr. Walls. "This is fucking unacceptable and I want that nurse to be held accountable for not calling me. How can she be transferred in the morning and I'm not notified until 5 hours later?! I'm fucking livid and want someone's ass accountable and this place in their file. I get being busy but there is not excuse to not be called. And I'm not just anyone, that is MY MOTHER!". SW empathized and informed pt dtr that SW would alert the nurse manager machine and see if she could call pt dtr to discuss the process and what can be done. SW iterated with pt dtr that this is not a typical SW role when something medical comes up. Pt dtr questioned SW when she knew. BRIEN informed pt dtr that SW was told by the community cultural development officer at 10:00; however, SW felt that the pt who was covoid positive and caring for that situation at the time was more pressing as pt is downstairs and from what SW was told, being cared for. Pt dtr did not find that acceptable either, asking SW what was wrong with pt. BRIEN informed her that she does not know. All she was told was that pt was transferred downstairs but unsure of the reason. Pt dtr will plan to call a nurse manager machine on Monday if she does not hear from one today and will then attempt to contact ICU to see "what in the actual fuck is going on".
[2020-03-27] MEDS: POTASSIUM CL 40MEQ IN 0.9%NACL 1,000 ML IV SCH ×2 (16:17→23:27)
[2020-03-27] MEDS: VANCOMYCIN 125 MG/2.5 ML ORAL SOLUTION. PO SCH ×2 (17:17→20:15)
[2020-03-27] MEDS: HALOPERIDOL 5 MG TABLET PO PRN (17:17)
--- NOTE | 2020-03-27 19:34 | HP ---
ADMIT DATE: 03/27/2020 HISTORY OF PRESENT ILLNESS: The patient is a 64-year-old female patient, who was transferred from [facility] last night, early this morning on account of hypotension and sepsis. The patient was hypotensive, tachycardic and febrile. Her blood pressure dropped down to 90/60, heart rate was up to 130. Temperature went up to 100.7. She has had lab work done including a CBC, CMP. Her D-dimer was elevated at 10.37 and therefore we did basically sent blood, urine for culture and sensitivity. As she has multiple episodes of loose bowel movement, we sent also stool for C. diff toxins and was given a liter of normal saline and was transferred to the ICU and was continued on IV fluid, IV Zosyn as well as oral vancomycin. She is very difficult to vascular access. We did a CT scan of the chest, which basically showed no acute abnormality to account for the patient's chest pain. She has extensive calcific coronary artery disease, dense calcific atherosclerosis in the region of the right carotid bifurcation. She has also pleural based nodule in the right middle lobe measuring 4 mm. This does not meet the size criteria for indicated followup unless there are other risk factors for lung malignancy. Evaluation of the upper abdomen is more difficult due to motion, but there may be some inflammation of the pericolonic fat at the splenic flexure. Additionally, apparent fluid within the colon at this location can be seen with a dilated state. She has osteopenia and multifocal degenerative changes. We did order venous Doppler ultrasound, start her on Lovenox empirically and was transferred to the ICU with a suspicion that the patient might have sepsis due to UTI versus C. diff colitis. She has also elevated D-dimer, is concerning for deep vein thrombosis, pulmonary embolism, for which we did start her on Lovenox 1 mg/kg subcutaneously twice a day. PAST MEDICAL HISTORY: Significant for progressive memory deficit, paranoia, mood vacillation deep and appetite changes and diagnosis of posterior cortical atrophy being and legally blind worsens her agitation. She also has major neurocognitive disorder, probably Alzheimer, vascular. No clear history of bipolar disorder. PAST SURGICAL HISTORY: Significant for recent right hip fracture, status post right hip hemiarthroplasty. ALLERGIES: SHE IS ALLERGIC TO CODEINE, AND OXYCODONE. CODE STATUS: DNR. She is on a regular finger food diet due to her eyesight problems. FAMILY HISTORY: Noncontributory. SOCIAL HISTORY: She is currently a resident at [facility]. She continues to smoke, but does not drink alcohol or use any illicit drugs. Her daughter Daphne is her DPOA. PHYSICAL EXAMINATION: GENERAL: When I saw her today, she was resting slightly propped up in bed, no apparent distress, continued to be somewhat confused, hallucinating. She was somewhat pale, cachectic, but no jaundice, cyanosis or thyromegaly. No jugular venous distention. No limb edema. VITAL SIGNS: Her heart rate was 97, blood pressure was 120/74, temperature was 98.8, respiratory rate was 22 and oxygen saturation was 99%. HEAD, EYES, EARS, NOSE AND THROAT: Showed normocephalic, atraumatic. NECK: Supple. HEART: Showed normal first and second heart sounds. No gallop or murmur. CHEST: Clear to auscultation. No crepitation or rhonchi. ABDOMEN: Distended, soft, nontender. NEUROLOGIC: She is awake, alert; however, she is legally blind. All other cranial nerves are intact. EXTREMITIES: She moves extremities without difficulty. She does walk with a 2-person assist. LABORATORY DATA: Her lab work was done this morning while at [facility] showed a white cell count of 10,600, hemoglobin 11, hematocrit 34, MCV 96, and platelet count 256,000. Her chemistry this morning showed a serum sodium 141, potassium 3.4, chloride 105, bicarbonate 26, anion gap of 10, BUN 14, creatinine 0.9, estimated GFR was 63 mL per minute. Her glucose 120, calcium was 8.9. Total bilirubin, AST, ALT, alkaline phosphatase were normal. Total protein was 6.9, albumin 3. Her vitamin B12 was more than 2000 ____. Her 25-hydroxy vitamin D was 26.5. Her TSH was 1.360. Her total T4 was 7, total T3 was 109. Her hemoglobin A1c was 5.6. Her D-dimer was high at 10.37 and her treponema pallidum antibodies were nonreactive and coronavirus PCR was undetectable on March 23. Her C. diff toxin by PCR was positive. PLAN: This obviously came later after she was transferred to [address] [place] [address]. The patient was given liter of normal saline. We sent blood, urine culture and sensitivity, stool for C. diff toxin and where she was started on Zosyn 3.375 g IV every 6 hours as well as vancomycin 125 mg p.o. every 6 hours. We will continue with vancomycin with Lovenox 1 mg/kg subcutaneous twice a day. We will continue with all other medication and obviously will adjust her antibiotic according to the result of the blood and urine culture and sensitivity. We will consult Dr. Kelley, who assisted with her management ____ was not noting that I spoke with the [facility] and they really have not offered any much help. BALAJI ISRAEL MD DR: MELISSA/evan JOB#: [id number] / [id number]
[2020-03-27] MEDS: MIRTAZAPINE 7.5 MG TABLET. PO SCH (20:15)
[2020-03-27] MEDS: traZODone 100 MG TABLET. PO PRN (20:15)
[2020-03-27] MEDS: LACTOBACILLUS RHAMNOSUS GG 1 CAPSULE. PO SCH (20:16)
[2020-03-28] VITALS (15 sets, daily range): BP systolic 96–144; BP diastolic 55–80
[2020-03-28] MEDS: PIPERACILLIN/TAZOBACTAM 3.375 GM in IV NORMAL SALINE 50ML 50 ML IV SCH ×4 (05:37→23:25)
[2020-03-28 06:48] LABS: HEMATOCRIT 33.8 % (36.0-47.0); HEMOGLOBIN 10.9 g/dL (12.0-15.5); RED BLOOD COUNT 3.46 x10^6/uL (3.50-5.40); WHITE BLOOD COUNT 7.7 x10^3/uL (4.0-11.0)
[2020-03-28 07:03] LABS: ALBUMIN 2.7 g/dL (3.4-5.0); ALBUMIN/GLOBULIN RATIO 0.7 (1.0-1.7); CALCIUM 9.1 mg/dL (8.5-10.1); CREATININE 0.8 mg/dL (0.6-1.0); GFR 72.4; POTASSIUM 4.6 mmol/L (3.5-5.1); TOTAL BILIRUBIN 0.3 mg/dL (0.2-1.0); TOTAL PROTEIN 6.5 g/dL (6.4-8.2)
[2020-03-28] MEDS: POTASSIUM CL 40MEQ IN 0.9%NACL 1,000 ML IV SCH (07:08)
[2020-03-28] MEDS: ENOXAPARIN ** NOTE DOSE ** SYRINGE SQ SCH ×2 (08:33→20:09)
[2020-03-28] MEDS: VANCOMYCIN 125 MG/2.5 ML ORAL SOLUTION. PO SCH ×4 (08:33→20:08)
[2020-03-28] MEDS: LACTOBACILLUS RHAMNOSUS GG 1 CAPSULE. PO SCH ×2 (08:34→20:08)
[2020-03-28] MEDS: NYSTATIN TOPICAL POWDER 15GM BOTTLE. TP SCH ×2 (08:34→20:09)
[2020-03-28] MEDS: NICOTINE 7MG PATCH. TD SCH (08:34)
[2020-03-28] MEDS: HALOPERIDOL 5 MG TABLET PO PRN ×2 (13:20→20:08)
--- NOTE | 2020-03-28 17:19 | PN ---
DATE: 03/28/2020 SUBJECTIVE: The patient is resting, slightly propped up in bed, in no apparent distress. She apparently continued to be restless, agitated. She is completely confused and does not really keep conversation. Her coronavirus by PCR was not detected. Her blood culture so far is negative with no growth after one day. PHYSICAL EXAMINATION: GENERAL: When I examined her this afternoon, she looked well and was clearly in no apparent respiratory distress, pale. No jaundice, cyanosis or thyromegaly. No jugular venous distention. No limb edema. VITAL SIGNS: Her heart rate was 71, blood pressure was 101/55, temperature was 98, respiratory rate was 17 and oxygen saturation was 97%. HEAD, EYES, EARS, NOSE AND THROAT: Showed normocephalic, atraumatic. NECK: Supple. CARDIAC: Normal first and second heart sounds. No gallop or murmur. CHEST: Clear to auscultation. No crepitation or rhonchi. ABDOMEN: Distended, soft, nontender. NEUROLOGIC: She is awake, alert, but extremely confused. She is legally blind; however, all other cranial nerves are intact. She moves extremities without difficulty. She has an indwelling Gordillo catheter. Her intake over the last 24 hours was incompletely recorded. LABORATORY DATA: As of this morning, her white cell count is down to 7700, hemoglobin 11, hematocrit 33, MCV 98, and platelet count 225,000. Serum sodium was 145, potassium 4.6, chloride 113, bicarbonate 25, anion gap of 7, BUN 7, creatinine 0.8, estimated GFR was 72 mL per minute. Her glucose was 84, calcium was 9.1. Total bilirubin, AST, ALT, and alkaline phosphatase were normal. Total protein was 6.5 and albumin was 2.7. ASSESSMENT: 1. Clostridium difficile colitis for which she is on oral vancomycin. She had only one bowel movement this morning. Other medical problems include posterior cortical atrophy, being legally blind. 2. Progressive memory loss, paranoia, mood vacillation deep sleep and appetite changes with major neurocognitive disorder. The patient had recently right hip hemiarthroplasty. Her D-dimer was extremely high at 10; however, the venous Doppler ultrasound was negative for deep vein thrombosis. PLAN: My plan is obviously to discontinue IV fluid. Continue with oral vancomycin. Continue with all other medication. I will definitely arrange for her to have a CT angio of the chest to rule out the possibility of pulmonary emboli and if she does have one, she will probably require an IVC filter as it is very high fall risk and would not be a candidate for long-term anticoagulation. BALAJI ISRAEL MD DR: MELISSA/evan JOB#: [id number] / [id number]
[2020-03-28] MEDS: MIRTAZAPINE 7.5 MG TABLET. PO SCH (20:08)
[2020-03-28] MEDS: ACETAMINOPHEN 325 MG TABLET PO PRN (20:08)
[2020-03-28] MEDS: traZODone 100 MG TABLET. PO PRN ×2 (20:08→23:26)
[2020-03-29] MEDS: PIPERACILLIN/TAZOBACTAM 3.375 GM in IV NORMAL SALINE 50ML 50 ML IV SCH ×4 (04:49→23:54)
[2020-03-29 05:19] VITALS: BP 146/71
[2020-03-29] MEDS: LACTOBACILLUS RHAMNOSUS GG 1 CAPSULE. PO SCH ×2 (08:24→20:31)
[2020-03-29] MEDS: NICOTINE 7MG PATCH. TD SCH (08:24)
[2020-03-29] MEDS: ENOXAPARIN ** NOTE DOSE ** SYRINGE SQ SCH ×2 (08:28→20:30)
[2020-03-29] MEDS: VANCOMYCIN 125 MG/2.5 ML ORAL SOLUTION. PO SCH ×4 (09:14→20:31)
[2020-03-29] MEDS: NYSTATIN TOPICAL POWDER 15GM BOTTLE. TP SCH ×2 (09:14→20:32)
--- NOTE | 2020-03-29 13:17 | PN ---
DATE: 03/29/2020 SUBJECTIVE: The patient is resting flat in bed, in no apparent distress. She continued to be confused, hallucinating. Nursing staff stated that she generally ____ agitated, restless than before. PHYSICAL EXAMINATION: GENERAL: When I examined her, she looked pale, cachectic, but no jaundice, cyanosis or thyromegaly. No jugular venous distention. No lower limb edema. VITAL SIGNS: Her heart rate was 62, blood pressure was 146/71, temperature 97.1, respiratory rate 20, and oxygen saturation was 97%. HEAD, EYES, EARS, NOSE, AND THROAT: Showed normocephalic and atraumatic. NECK: Supple. CARDIAC: Normal first and second heart sounds. No gallop or murmur. CHEST: Clear to auscultation. No crepitation or rhonchi. ABDOMEN: Distended, soft, nontender. NEUROLOGIC: She is very confused, still hallucinating, talks to people that are not there. However, she is also legally blind. All her other cranial nerves intact. She moves extremities without difficulty, although she is mostly bedbound. Her intake over the last 24-hours was 2400, output was 2050. LABORATORY DATA: As of yesterday, her serum sodium was 145, potassium 4.6, chloride 113, bicarbonate 25, anion gap of 7, BUN 7, creatinine 0.8, estimated GFR was 72 mL per minute. Her glucose was 84, calcium was 9.1. Total bilirubin, AST, ALT, alkaline phosphatase were normal. Total protein 6.5, albumin was 2.7. White cell count was 7700, hemoglobin 10.9, hematocrit 33.8, MCV 98 and platelet count 225,000. Her blood cultures showed no growth after 2 days. Her coronavirus by PCR was not detected. Her stool for C. diff toxins were positive. ASSESSMENT: 1. Clostridium difficile colitis for which is now on oral vancomycin. She had multiple bowel movements overnight. 2. Other medical problems include posterior cortical atrophy and being legally blind. 3. Progressive memory loss, paranoia, mood vacillation, sleep and appetite changes with major neurocognitive disorder. 4. The patient recently had a right hip hemiarthroplasty. Her D-dimer was extremely high at 10. However, the venous Doppler ultrasound of both lower extremities were negative for deep vein thrombosis. PLAN: My plan is to continue with oral vancomycin. I will continue one more day with Zosyn and by tomorrow the blood cultures are negative, I will discontinue Zosyn. I will discontinue the Gordillo catheter. I will arrange to have a peripheral IV line and CT angio of the chest to rule out the possibility of pulmonary emboli, given markedly elevated D-dimer. BALAJI ISRAEL MD DR: MELISSA/evan JOB#: [id number] / [id number]
[2020-03-29 15:56] VITALS: BP 124/73
[2020-03-29] MEDS ORDERED: IV NORMAL SALINE 1,000ML 1,000 ML IV ONE (16:30)
[2020-03-29] MEDS ORDERED: IOHEXOL 350 MG/ML 100 ML VIAL. IV ONE (17:00)
--- NOTE | 2020-03-29 18:08 | RAD ---
CT ANGIOGRAPHY CHEST INDICATION: Reason: hypoxia and elevated D Dimer Comparison: 03/27/2020. TECHNIQUE: Following the uneventful administration of intravenous contrast, 98 cc Omnipaque 350, axial CT sections were obtained through the lungs and upper abdomen. Multiplanar reconstructions and MIP images were obtained. RS compliance statement: One or more of the following individualized dose reduction techniques were utilized for this examination: 1. Automated exposure control 2. Adjustment of the mA and/or kV according to patient size 3. Use of iterative reconstruction technique FINDINGS: Pulmonary arteries: No evidence of pulmonary thromboembolic disease. Lungs and Airways: No pulmonary mass or consolidation. Stable middle lobe 4 mm subpleural nodule (series 3 image 61). No abnormality of the central airways. Pleura: The pleural spaces are normal. Heart and Mediastinum: The visualized thyroid is normal in size and attenuation. No axillary or supraclavicular lymphadenopathy. No mediastinal, hilar or retrocrural lymphadenopathy. Normal cardiac size. Coronary artery atherosclerotic disease. The great vessels of the thorax are normal. Abdomen: Limited images through the upper abdomen show no abnormality of the visualized organs. Bones and Soft Tissues: Degenerative changes of the spine. IMPRESSION: 1. No evidence of pulmonary thromboembolic disease. 2. No pulmonary mass or consolidation. Electronically signed by: Matthew Pate MD (03/29/2020 6:05 PM) [facility]
[2020-03-29 19:45] VITALS: BP 134/67
[2020-03-29] MEDS: MIRTAZAPINE 7.5 MG TABLET. PO SCH (20:31)
[2020-03-29] MEDS: traZODone 100 MG TABLET. PO PRN (20:31)
--- NOTE | 2020-03-29 23:34 | CONS ---
DATE OF CONSULTATION: 03/27/2020 NEUROLOGIC CONSULTATION REFERRING PHYSICIAN: Dr. Kelley/Dr. Walls. REASON FOR CONSULTATION: New onset of abnormal movements. HISTORY OF PRESENT ILLNESS: This is a 64-year-old female patient at [facility] who was transferred last night to ICU because she was found to have hypotension at 90/60 and tachycardia at 130 with temperature of 100.7. Therefore, the patient has been evaluated for possible underlying systemic sepsis. Neuro consult was requested last night because the patient had abnormal movements of the upper and lower extremities. Initially, she has had a history of severe dementia with posterior cortical atrophy and blindness. Due to severe cognitive disorder, the patient is unable to provide any information. Prior to transfer, the patient had diarrhea. Therefore, she has been evaluated to rule out C. diff toxins. Empirically, the patient was placed on wide-spectrum antibiotics intravenously and COVID-19 test has been performed, the result is still pending. PAST MEDICAL HISTORY: Significant for progressive memory deficit, legal blindness, posterior cortical atrophy. PAST SURGICAL HISTORY: Positive for right hip fracture, required surgery. FAMILY HISTORY: Noncontributory. SOCIAL HISTORY: The patient is a resident at [facility]. She is a smoker, but there is no history of alcohol drinking or illicit drug use. CURRENT MEDICATIONS: Includes lorazepam, mirtazapine, vancomycin IV, Lovenox, Zosyn, artificial tear, nystatin, nicotine patches, vitamin D, trazodone, olanzapine, haloperidol, and Tylenol. ALLERGIES: CODEINE AND OXYCODONE. REVIEW OF SYSTEMS: A 10-point review of system was very limited due to advanced cognitive disorders suggestive of Alzheimer type of dementia. PHYSICAL EXAMINATION: GENERAL: Well-developed, well-nourished female, not in acute distress. She weighs 52 kilos. VITAL SIGNS: Blood pressure is 89/58, respiratory rate 20, pulse is 90 and regular, temperature 98.7, oxygen saturation is 99% on room air. HEENT: Normocephalic, atraumatic, otherwise unremarkable. NECK: Supple. Negative for carotid bruit, lymphadenopathy or thyromegaly. LUNGS: Clear to A and P. CARDIOVASCULAR: Regular rate and rhythm. Normal S1, S2. ABDOMEN: Soft. Bowel sounds positive. EXTREMITIES: Negative for cyanosis, clubbing or pitting edema. NEUROLOGIC: The patient is restless in bed. She has intermittent movements of the upper and lower extremities. She does not respond to simple commands appropriately. She is closing her eyes and when she was asked to open her eyes, she could not count fingers. The patient does not follow any commands and she is unable to communicate appropriately. Further evaluation of her mental status is very limited at this time due to underlying dementia. Cranial nerves: The patient opened her eyes briefly. The pupils are equal. There is no facial motor asymmetry. Hearing appeared to be intact. Further evaluation is limited at this time. Motor examination: No focal muscle bulk was seen. The patient had intermittent jerking movements of the right upper extremity and sometimes of the lower extremities. It is rhythmic, mainly the right hand. The patient moves her upper and lower extremities equally. Sensory examination appeared to be normal to pinprick and light touch senses. Deep tendon reflexes were hypoactive with absent Achilles responses. Gait not tested. DIAGNOSTIC DATA: Chest CT scan revealed no evidence of pulmonary embolism or mass or infiltration. LABORATORY DATA: CBC revealed white blood cells of 14,400, hemoglobin 11.6, hematocrit 35.6, platelet count 248,000. Chemistry revealed sodium of 142, potassium 3.5, chloride 106, CO2 of 24, BUN 17, creatinine 1, glucose 109. Liver enzymes are normal. Urinalysis is negative for urinary tract infections. Coronavirus PCR is not detected. Coagulation which revealed elevated D-dimer at 10.37. IMPRESSION: 1. Acute encephalopathy, presented with abnormal movements of the upper and lower extremities, rule out medication side effects and possible due to underlying systemic infections with leukocytosis. 2. Rule out elevated D-dimer. 3. Multiple medical problems include systemic sepsis, rule out C. diff toxins, posterior cortical atrophy may have contributed to the underlying and advanced vision loss/legal blindness. RECOMMENDATIONS: 1. Continue with current management initiated by Dr. Walls for possible underlying systemic infections. 2. Psychiatric consult with Dr. Kelley to review her psych medications. M Pierce RUIZ MD DR: SAPPHIRE/evan JOB#: [id number] / [id number]
[2020-03-30] MEDS: PIPERACILLIN/TAZOBACTAM 3.375 GM in IV NORMAL SALINE 50ML 50 ML IV SCH ×2 (05:39→11:34)
[2020-03-30 05:52] VITALS: BP 99/65
--- NOTE | 2020-03-30 07:07 | PDOC ---
Exam Note: Myke Note: This note is a late entry for 03/28/2020 covers elements not covered in my initial note. Subjective: I was called as an emergency by the nursing staff as the patient has been increasingly agitated in the ICU. She was transferred to the ICU from [facility] due to questionable sepsis and fever of 104 degrees. The fever has since subsided and medically per nursing report the patient is stabilizing but she has been extremely labile in her mood, intermittently hallucinating. She does have posterior cortical atrophy causing cortical blindness and questionable visual hallucinations versus visual stimuli consequent to posterior cortical atrophy. We had stopped the Risperdal before she left [facility] consequent to questionable neuroleptic malignant syndrome as part of her differential diagnosis. She has been spitting out all her medications, remains confused. Review of Systems: Ambulation impaired. Vision is poor and per nursing report no CV, , GI, ENT system symptoms on review. Mental Status Exam: Oriented to herself. Insight and judgment, recent and remote memory, attention and concentration, fund of knowledge is poor consistent with her diagnoses. Laboratory Data: Reviewed. Impression: Posterior cortical atrophy. Anxiety disorder unspecified. Impulse control disorder unspecified. Psychotic disorder unspecified. Plan: We discussed the option of using IM Haldol and Ativan combination. The patient does have IV access and given the questionable neuroleptic malignant syndrome even though that is not an active consideration at this time, we will avoid atypical antipsychotic, especially since the questionable visual hallucinations could be part of her posterior cortical atrophy. We will use Ativan 0.5 mg q.4h. p.r.n. anxiety and agitation, maximum 1 mg IV a day for now and then decide if we need to do anything further after that. Continue rest of the psychotropics. Assessment: Vital Signs/I&O: Vital Signs Date Time Temp Pulse Resp B/P (MAP) Pulse Ox O2 Delivery O2 Flow Rate FiO2 03/30/20 05:52 97.6 58 16 99/65 (76) 97 Room Air I & O 03/29/20 03/29/20 03/30/20 15:00 23:00 07:00 Intake Total 220 ml 120 ml Output Total 1150 ml Balance -930 ml 120 ml Current Medications: Meds: Current Medications Medications (Trade) Dose Ordered Sig/Shila Route PRN Reason Start Time Stop Time Status Last Admin Dose Admin Lorazepam (Ativan Inj) 1 mg 1X ONCE IVP 03/29/20 17:00 03/29/20 17:01 DC 03/29/20 16:50 I have reviewed the current psychotropics carefully including drug interactions. Risk benefit ratio favors no change other than as noted in my dictated progress note. Diagnosis: Problems: (1) Impulse control disorder, unspecified (2) Anxiety disorder, unspecified (3) Major neurocognitive disorder (4) Posterior cortical atrophy CARLY AWAN MD Mar 30, 2020 07:07
[2020-03-30] MEDS: LACTOBACILLUS RHAMNOSUS GG 1 CAPSULE. PO SCH ×2 (08:47→20:12)
[2020-03-30] MEDS: VANCOMYCIN 125 MG/2.5 ML ORAL SOLUTION. PO SCH ×4 (08:47→20:10)
[2020-03-30] MEDS: ENOXAPARIN ** NOTE DOSE ** SYRINGE SQ SCH (08:49)
[2020-03-30] MEDS: NICOTINE 7MG PATCH. TD SCH (08:49)
[2020-03-30] MEDS: NYSTATIN TOPICAL POWDER 15GM BOTTLE. TP SCH ×2 (08:50→20:13)
--- NOTE | 2020-03-30 09:27 | NUR ---
IP: patient test + for c diff, requires contact + precautions.
[2020-03-30 10:57] VITALS: BP 138/79
[2020-03-30 14:17] LABS: HEMATOCRIT 34.4 % (36.0-47.0); HEMOGLOBIN 11.2 g/dL (12.0-15.5); RED BLOOD COUNT 3.6 x10^6/uL (3.50-5.40); RED CELL DISTRIBUTION WIDTH 13.9 % (11.5-14.5); WHITE BLOOD COUNT 4.4 x10^3/uL (4.0-11.0)
[2020-03-30 14:28] LABS: ALBUMIN 2.8 g/dL (3.4-5.0); ALBUMIN/GLOBULIN RATIO 0.7 (1.0-1.7); CALCIUM 9.4 mg/dL (8.5-10.1); CREATININE 0.9 mg/dL (0.6-1.0); GFR 63.2; TOTAL BILIRUBIN 0.3 mg/dL (0.2-1.0); TOTAL PROTEIN 6.9 g/dL (6.4-8.2)
[2020-03-30 15:51] VITALS: BP 104/55
--- NOTE | 2020-03-30 15:52 | NUR ---
IP: Patient recent potential exposure to COVID-19, quarantine for two weeks from admission.
[2020-03-30] MEDS: ACETAMINOPHEN 325 MG TABLET PO PRN (16:51)
--- NOTE | 2020-03-30 17:34 | NUR ---
PATIENT BECAME RESTLESS THIS AFTERNOON, KEEP TRYING TO GET UP, PATIENT WAS REDIRECTED SEVERAL TIMES WITHOUT SUCCESS. PATIENT GIVEN ZYPREXA PRN ORDERED WITHOUT IMPROVEMENT, PATIENT CONTINUOUSLY TRYING TO GET UP WITHOUT ASSIST. PATIENT GIVEN ATIVAN ORDERED TO REDUCE RESTLESSNESS AND PROMOTE REST. PATIENT IS CURRENTLY IN A BED RESTING COMFORTABLY. WILL CONTINUE TO MONITOR.
--- NOTE | 2020-03-30 18:29 | PN ---
DATE: 03/30/2020 SUBJECTIVE: The patient is resting, slightly propped up in bed, in no apparent distress, somewhat sleepy today, has had no further episode of diarrhea at least so far. We did manage to do CT angio of the chest, which basically showed no evidence of pulmonary thromboembolic disease, no pulmonary mass or consolidation. PHYSICAL EXAMINATION: GENERAL: When I examined her, she was somewhat pale, cachectic, but no jaundice, cyanosis or thyromegaly. No jugular venous distention. No lower limb edema. VITAL SIGNS: Her heart rate was 59, blood pressure was 138/79, temperature was 98.2, respiratory rate was 18 and oxygen saturation was 99% on room air. HEAD, EYES, EARS, NOSE AND THROAT: Showed normocephalic, atraumatic. NECK: Supple. HEART: Showed normal first and second heart sounds. No gallop or murmur. CHEST: Clear to auscultation. No crepitation or rhonchi. ABDOMEN: Distended, soft, nontender. NEUROLOGIC: She is confused, legally blind, but otherwise all her cranial nerves are intact. She moves extremities without difficulty. Her intake over the last 24 hours was 2070, output was 2250. LABORATORY DATA: Today's labs are still pending at the time of this dictation. Her blood cultures showed no growth after 3 days. PLAN: My plan is to discontinue Zosyn. I would also change her Lovenox to therapeutic dose only. We will continue with oral vancomycin. Continue with physical and occupational therapy. We will continue with physical and occupational therapy. We obviously eventually have to transfer her up to the [facility] to continue the inpatient psychiatric stabilization. BALAJI ISRAEL MD DR: MELISSA/evan JOB#: [id number] / [id number]
[2020-03-30 19:33] VITALS: BP 145/98
[2020-03-30] MEDS: HALOPERIDOL 5 MG TABLET PO PRN (20:11)
[2020-03-30] MEDS: traZODone 100 MG TABLET. PO PRN ×2 (20:12→21:54)
[2020-03-30] MEDS: MIRTAZAPINE 7.5 MG TABLET. PO SCH (20:12)
--- NOTE | 2020-03-30 22:33 | NUR ---
Pt was very agitated when approached for assessment. Pt tried to get up out of bed multiple times w/o assistance. Pt was unable to obtain education on using call light. Pt was oriented only to self. Pt tolerated HS medications well. Pt was given Trazodone and Haldol w/ HS Meds as indicated. Pt called out of room and attempted to get out of bed after medications were given. Pt. was given repeat Trazodone and has now calmed down. Tab alarm is placed on pt. Will continue to monitor.
[2020-03-31 05:16] VITALS: BP 128/77
[2020-03-31] MEDS: VANCOMYCIN 125 MG/2.5 ML ORAL SOLUTION. PO SCH ×4 (07:46→20:06)
[2020-03-31] MEDS: LACTOBACILLUS RHAMNOSUS GG 1 CAPSULE. PO SCH ×2 (07:46→20:07)
[2020-03-31] MEDS: NICOTINE 7MG PATCH. TD SCH (07:47)
[2020-03-31] MEDS: ENOXAPARIN 40 MG/0.4 ML SYRINGE. SQ SCH (07:47)
[2020-03-31] MEDS: NYSTATIN TOPICAL POWDER 15GM BOTTLE. TP SCH ×2 (07:49→20:07)
[2020-03-31 10:21] VITALS: BP 145/78
--- NOTE | 2020-03-31 13:49 | PN ---
DATE: 03/31/2020 SUBJECTIVE: The patient is sitting comfortably in her bed, in no apparent distress. She continued to be confused; however, she was able to get with the assistance to the bedside commode and was continent and managed to empty her bladder. She has had no diarrhea today. PHYSICAL EXAMINATION: GENERAL: When I examined her, she looked pale, cachectic, but not jaundiced, cyanosed or thyromegaly. No jugular venous distention. No limb edema. VITAL SIGNS: Her heart rate was 71, blood pressure was 145/78, temperature 97.7, respiratory rate was 16, and oxygen saturation was 97% on room air. HEENT: Showed normocephalic, atraumatic. NECK: Supple. HEART: Showed normal first and second heart sounds. No gallop or murmur. CHEST: Clear to auscultation. No crepitation or rhonchi. ABDOMEN: Distended, soft, nontender. NEUROLOGIC: She is very confused, has cortical blindness, but all other cranial nerves are intact. She moves extremities without difficulty. She does have muscle wasting. Her intake over the last 24 hours was 2070, output was 1150. LABORATORY DATA: Her most recent lab work showed a white cell count of 4400, hemoglobin 11, hematocrit 34, MCV 96, and platelet count of 276,000. Her chemistry showed a serum sodium 144, potassium 4, chloride 108, bicarbonate 28, anion gap of 8, BUN 6, creatinine 0.9, estimated GFR was 63 mL per minute. Her glucose was 94, calcium was 9.4. Total bilirubin, AST, ALT, alkaline phosphatase were normal. Total protein was 6.9, albumin was 2.9. Her COVID by PCR was not detectable. ASSESSMENT: 1. Clostridium difficile colitis, sepsis, likely due to above. Her blood cultures continued to be negative and I discontinued her Zosyn. 2. Other medical problems include posterior cortical atrophy and being legally blind. 3. Progressive memory loss, paranoia and mood vacillation, sleep and appetite changes of major neurocognitive disorder, right hip hemiarthroplasty with poor mobility. Her D-dimer was extremely high at 10. However, her venous Doppler ultrasound of both lower extremities is negative. CT chest angiogram was negative for DVT while indicative for pulmonary emboli. PLAN: To continue with oral vancomycin. Continue with nutritional support. Continue DVT prophylaxis. Continue with physical and occupational therapy. Continue with all psychotropic medication as recommended by the psychiatrist. BALAJI ISRAEL MD DR: MELISSA/evan JOB#: [id number] / [id number]
--- NOTE | 2020-03-31 14:38 | NUR ---
NURSING NOTE WHILE ATTEMPTING TO CHECK ON PT AND REPOSITION, PT FOUND WITH HER LEGS HANGING OFF THE SIDE OF THE BED. THIS NURSE SPEAKING WITH PT INSTRUCTED PT TO SCOOT HER BOTTOM BACK TOWARDS THE MIDDLE OF THE BED FOR SAFETY, PT YELLING AND BEING VERBALLY ABUSIVE TOWARD STAFF. UNABLE TO REDIRECT PT AT THIS TIME. PRN ZYPREXA GIVEN. WILL CONTINUE TO MONITOR. LORENZO TY.
[2020-03-31 14:56] VITALS: BP 115/67
[2020-03-31 19:35] VITALS: BP 153/91
[2020-03-31] MEDS: traZODone 100 MG TABLET. PO PRN (20:06)
[2020-03-31] MEDS: MIRTAZAPINE 7.5 MG TABLET. PO SCH (20:06)
[2020-03-31] MEDS: HALOPERIDOL 5 MG TABLET PO PRN (20:07)
[2020-04-01 00:20] VITALS: BP 163/77
[2020-04-01 06:36] LABS: CALCIUM 9.6 mg/dL (8.5-10.1); CREATININE 0.9 mg/dL (0.6-1.0); GFR 63.2
[2020-04-01 06:39] VITALS: BP 106/66
[2020-04-01] MEDS: LACTOBACILLUS RHAMNOSUS GG 1 CAPSULE. PO SCH ×2 (08:26→20:19)
[2020-04-01] MEDS: VANCOMYCIN 125 MG/2.5 ML ORAL SOLUTION. PO SCH ×4 (08:26→20:19)
[2020-04-01] MEDS: NICOTINE 7MG PATCH. TD SCH (08:26)
[2020-04-01] MEDS: ENOXAPARIN 40 MG/0.4 ML SYRINGE. SQ SCH (08:27)
[2020-04-01] MEDS: NYSTATIN TOPICAL POWDER 15GM BOTTLE. TP SCH ×2 (09:00→20:35)
--- NOTE | 2020-04-01 10:25 | NUR ---
BRIEN and the Senior Behavioral Director contacted pt dtr, Daphne, to discuss her concerns about the transfer to the medical floor. Pt dtr appreciated the call back and reports that she has since calmed down and is no longer angry. Pratima, the Director, informed pt dtr that all nurses have been talked to about this situation and it is evident that communication between the units was poor. All parties empathized with one another in that we all are advocates for those who are not able to communicate themselves and Daphne reports she has to be the biggest advocate. "I don't know if you've noticed but my mother is like a non-verbal autistic child". BRIEN and Daphne discussed pt medications under the direction of Pratima filling in on the nursing perspective. Daphne reports that she does keep in contact with nursing staff downstairs and is questioning next steps. BRIEN explained that she would have to contact the psychiatrist to see if he will start her psych medications, as she is continuing to get medically stable. In treatment team it was discussed that pt would start on Depakote in which BRIEN explained that labs would be involved to ensure that she will remain therapeutic. Once BRIEN is able to meet with the psychiatrist, BRIEN will contact pt dtr Daphne with those updates. Daphne and all parties again, appreciated the call and will continue to follow up with Daphne as pt case progresses. No further concerns were noted.
[2020-04-01 10:53] VITALS: BP 136/80
[2020-04-01] MEDS: POTASSIUM CHLORIDE 20 MEQ TABLET.ER. PO SCH ×2 (11:59→16:53)
--- NOTE | 2020-04-01 12:34 | PN ---
DATE: 04/01/2020 ATTENDING PHYSICIAN: Dr. Walls, Dr. Chester. SUBJECTIVE: Very comfortable. She is pleasantly confused. No agitation, no further diarrhea today. OBJECTIVE FINDINGS: VITAL SIGNS: Her temperature today is 98.3 degrees Fahrenheit, blood pressure 115/67 mmHg, oxygen saturation 98% on room air, pulse 68 and regular. HEENT: She has cortical blindness. NECK: Supple. Oropharynx clear. LUNGS: Otherwise clear. CARDIOVASCULAR: Showed regular heart tones. No gallops. ABDOMEN: Soft, no guarding or rebound tenderness. Bowel sounds are normoactive. EXTREMITIES: Showed no cyanosis or edema. NEUROLOGIC: Pleasantly confused, cortical blindness. No focal deficits. Speech is fluent. SKIN: Warm and dry. PERTINENT LABORATORY DATA: Laboratory studies repeated today. Potassium is down to 3.0 mEq per liter, sodium 145. No diuretics. ASSESSMENT: 1. A 64-year-old female with COVID positive coronavirus swab. She is asymptomatic. 2. Clostridium difficile colitis, treated. 3. Posterior cortical atrophy. She is legally blind. 4. Progressive memory loss, paranoia, mood isolation and dementia. PLAN: 1. Meds reviewed. 2. Potassium supplementation. 3. Continue oral vancomycin. 4. Psychiatric meds per Dr. Kelley. 5. Follow up swabs when available. DONATO CHESTER MD DR: KENDRICK/evan JOB#: [id number] / [id number]
[2020-04-01 15:27] VITALS: BP 123/61
--- NOTE | 2020-04-01 15:33 | NUR ---
NSG NOTE; DR CAI TELEPHONE CONSULT DR CAI CALLED HERE AND WAS UPDATED ON PT'S BEHAVIORS, SLEEPING & EATING HABITS NEW MEDICATION ORDERS RECEIVED
[2020-04-01 20:17] VITALS: BP 152/78
[2020-04-01] MEDS: HALOPERIDOL 5 MG TABLET PO PRN (20:19)
[2020-04-01] MEDS: traZODone 100 MG TABLET. PO PRN (20:19)
[2020-04-01] MEDS: MIRTAZAPINE 7.5 MG TABLET. PO SCH (20:35)
--- NOTE | 2020-04-01 23:02 | NUR ---
Pt was sitting up and yelling out when approached for assessment. Pt seemed to calm when this nurse entered the room. Pt is only orientated to self. Pt was safely transferred to BSC and back to bed w/ assist x1. Pt was given a snack and water w/ HS meds. Pt took HS meds whole and tolerated it well. Pt calmed down after assessment and stopped yelling out. Pt is resting comfortably in bed w/o displaying any behaviors. Will continue to monitor.
[2020-04-02] MEDS: ACETAMINOPHEN 325 MG TABLET PO PRN ×2 (00:50→22:34)
[2020-04-02 06:09] VITALS: BP 108/64
[2020-04-02] MEDS: POTASSIUM CHLORIDE 20 MEQ TABLET.ER. PO SCH ×2 (08:02→16:30)
[2020-04-02] MEDS: HALOPERIDOL 5 MG TABLET PO PRN ×2 (08:03→14:27)
[2020-04-02] MEDS: LACTOBACILLUS RHAMNOSUS GG 1 CAPSULE. PO SCH ×2 (08:03→20:02)
[2020-04-02] MEDS: NICOTINE 7MG PATCH. TD SCH (08:04)
[2020-04-02] MEDS: ENOXAPARIN 40 MG/0.4 ML SYRINGE. SQ SCH (08:04)
[2020-04-02] MEDS: VANCOMYCIN 125 MG/2.5 ML ORAL SOLUTION. PO SCH ×4 (08:11→20:02)
[2020-04-02] MEDS: OLANZapine 5 MG TABLET PO SCH (08:59)
[2020-04-02] MEDS: NYSTATIN TOPICAL POWDER 15GM BOTTLE. TP SCH ×2 (09:00→20:03)
[2020-04-02 10:20] VITALS: BP 132/73
--- NOTE | 2020-04-02 11:44 | PN ---
DATE: 04/02/2020 ATTENDING PHYSICIAN: Dr. Walls. SUBJECTIVE: The patient remains confused. Her speech is rambling, very tangential in nature. Unfortunately, she does not make any sense. No respiratory distress. OBJECTIVE FINDINGS: VITAL SIGNS: Blood pressure today is 132/73, pulse 90 and regular, temperature 97.4 degrees Fahrenheit, oxygen saturation 98% on room air. HEENT: Head is without trauma. Pupils are reactive. Sclerae nonicteric. NECK: Supple. LUNGS: Clear. CARDIOVASCULAR: Showed regular heart tones. ABDOMEN: Soft. EXTREMITIES: Without edema. NEUROLOGIC: She is agitated. She is cortically blind. Her speech is rambling. She is not aware of person, place or time. ASSESSMENT: 1. A 64-year-old female with profound dementia. 2. COVID-19 positive swab from the [facility]. She remains asymptomatic. 3. Recent Clostridium difficile colitis, treated. 4. Posterior cortical atrophy, legally blind. 5. Progressive dementia, memory loss, paranoia and agitation. PLAN: 1. Meds reviewed. 2. Psychiatric meds per Psychiatry. 3. Continue oral vancomycin. 4. Follow up swab when appropriate. DONATO CHESTER MD DR: KENDRICK/evan JOB#: [id number] / [id number]
--- NOTE | 2020-04-02 12:47 | NUR ---
PATIENT IS UP IN A BED AWAKE UPON ASSESSMENT THIS AM, CONFUSED BUT WILL COOPERATE WITH ASSESSMENT AND MED ADMINISTRATION. PATIENT IS TALKING TO HERSELF IN A ROOM, HER SPEECH IS RAMBLING AND DOES NOT MAKE SENSE, PATIENT WILL CALL OUT FOR HELP AT TIMES TO USE A RESTROOM. PATIENT WAS ASSISTED WITH MEALS AND ADLS WITH ASSIST X1 WILL CONTINUE TO MONITOR.
[2020-04-02 19:00] VITALS: BP 148/78
[2020-04-02] MEDS: MIRTAZAPINE 7.5 MG TABLET. PO SCH (20:02)
[2020-04-02] MEDS: traZODone 100 MG TABLET. PO PRN (20:02)
[2020-04-02 22:38] VITALS: BP 139/69
[2020-04-03] MEDS: traZODone 100 MG TABLET. PO PRN ×2 (00:42→21:30)
[2020-04-03] MEDS: HALOPERIDOL 5 MG TABLET PO PRN ×2 (00:42→12:17)
--- NOTE | 2020-04-03 00:49 | NUR ---
Pt has been unable to sleep this shift. Pt rambling to self while sitting up in bed, restless and attempting to scoot to the bottom of the bed or throw legs over side rail. Irritable with attempts to redirect. Pt offered toileting and hydration every two hours. Pt has been able to get up x1 assist to BSC, continent of urine and has has one soft BM. PRN trazodone given with HS meds to aid sleep was ineffective. PRN haldol and repeat trazodone given at this time as pt remains awake and is experiencing auditory hallucinations, talking back and forth with someone who is not there. Pt required some coaxing to take meds but did eventually comply. Pt back in bed, lowest position and alarm set for safety. Will monitor.
[2020-04-03 05:13] VITALS: BP 166/78
--- NOTE | 2020-04-03 06:22 | NUR ---
Pt only slept for approx. 1 hour overnight. Pt did calm some with PRN haldol, but continues to sit up in bed and talk nonsensically to herself.
[2020-04-03] MEDS: NYSTATIN TOPICAL POWDER 15GM BOTTLE. TP SCH ×2 (09:00→21:00)
[2020-04-03] MEDS: OLANZapine 5 MG TABLET PO SCH (09:10)
[2020-04-03] MEDS: ENOXAPARIN 40 MG/0.4 ML SYRINGE. SQ SCH (09:10)
[2020-04-03] MEDS: POTASSIUM CHLORIDE 20 MEQ TABLET.ER. PO SCH ×2 (09:10→16:32)
[2020-04-03] MEDS: NICOTINE 7MG PATCH. TD SCH (09:10)
[2020-04-03] MEDS: LACTOBACILLUS RHAMNOSUS GG 1 CAPSULE. PO SCH ×2 (09:10→21:30)
[2020-04-03] MEDS: VANCOMYCIN 125 MG/2.5 ML ORAL SOLUTION. PO SCH ×4 (09:10→21:32)
[2020-04-03] MEDS: CHOLECALCIFEROL (VITAMIN D3) 50,000 UNIT CAPSULE PO SCH (09:11)
--- NOTE | 2020-04-03 11:07 | PN ---
DATE: 04/03/2020 ATTENDING PHYSICIAN: Dr. Walls, Dr. Chester SUBJECTIVE: The patient remains confused. She is less agitated. Speech is rambling. No new complaints. No obvious signs of distress. OBJECTIVE FINDINGS: VITAL SIGNS: Her blood pressure today is 166/78, pulse 89 and regular, temperature 97.9 degrees Fahrenheit, oxygen saturation 100% on room air. HEENT: Head is without trauma. Pupils are reactive. Sclerae nonicteric. The patient has cortical blindness. NECK: Supple. LUNGS: Clear. CARDIOVASCULAR: Showed regular heart tones. ABDOMEN: Soft without any guarding. EXTREMITIES: Showed no edema. NEUROLOGIC: Very agitated, less agitated today. Cortically blind. Speech is rambling, very confused. ASSESSMENT: 1. A 64-year-old female with profound dementia. 2. COVID-19 positive coronavirus swab from the [facility]. She is asymptomatic. 3. Recent Clostridium difficile colitis, treated. 4. Posterior cortical atrophy, legally blind. 5. Progressive dementia, memory loss, paranoia and agitation. PLAN: 1. Meds reviewed. 2. We will discontinue the vancomycin when the appropriate 10-day course is complete. 3. Followup swabs when appropriate. DONATO CHESTER MD DR: KENDRICK/evan JOB#: [id number] / [id number]
--- NOTE | 2020-04-03 13:23 | NUR ---
PATIENT IS IN A BED ASLEEP THIS AM UPON ASSESSMENT, WOKE UP AROUND 11 AM , COOPERATED WITH STAFF DURING FEEDING AND ADLS, PATIENT IS IN A BED CURRENTLY AWAKE AND CALM, WILL CONTINUE TO MONITOR.
--- NOTE | 2020-04-03 20:00 | NUR ---
Pt screaming and rambling at start of shift. Pt speaks some logical phrases and many nonsensical phrases. Pt c/o side pain and rubs right side. When questioned she specified her hip. Pt could not describe intensity or quality. Tylenol given for pain. Pt cooperates with prompting to pivot for bedside commode, with occasional agitation d/t confusion. Pt directable to sit, stand and pull up paper brief. Pt states she is very hungry. Snacks given with night time medications. Pt required feeding d/t her focus on her conversation instead of the food. She opens her mouth when instructed for bites of food. Medications crushed in yogurt to ease in swallowing, followed by apple juice. No difficulty swallowing noted. Will continue to monitor.
[2020-04-03 20:10] VITALS: BP 126/76
[2020-04-03] MEDS: MIRTAZAPINE 7.5 MG TABLET. PO SCH (21:30)
[2020-04-03] MEDS: ACETAMINOPHEN 325 MG TABLET PO PRN (21:30)
[2020-04-04 05:30] VITALS: BP 116/71
--- NOTE | 2020-04-04 06:36 | NUR ---
Pt awake and rambling until about 0200. Cheese and crackers given and pt made comfortably. Pt resting soundly. Will continue to monitor.
[2020-04-04 07:24] LABS: CALCIUM 9.5 mg/dL (8.5-10.1); CREATININE 0.9 mg/dL (0.6-1.0); GFR 63.2; POTASSIUM 4.1 mmol/L (3.5-5.1)
[2020-04-04] MEDS: POTASSIUM CHLORIDE 20 MEQ TABLET.ER. PO SCH ×2 (08:43→16:05)
[2020-04-04] MEDS: OLANZapine 5 MG TABLET PO SCH (08:43)
[2020-04-04] MEDS: LACTOBACILLUS RHAMNOSUS GG 1 CAPSULE. PO SCH ×2 (08:43→20:33)
[2020-04-04] MEDS: ENOXAPARIN 40 MG/0.4 ML SYRINGE. SQ SCH (08:44)
[2020-04-04] MEDS: NICOTINE 7MG PATCH. TD SCH (08:44)
[2020-04-04] MEDS: VANCOMYCIN 125 MG/2.5 ML ORAL SOLUTION. PO SCH ×4 (08:45→20:33)
[2020-04-04] MEDS: NYSTATIN TOPICAL POWDER 15GM BOTTLE. TP SCH ×2 (09:54→21:00)
[2020-04-04 09:58] VITALS: BP 126/77
--- NOTE | 2020-04-04 11:14 | PN ---
DATE: 04/04/2020 ATTENDING PHYSICIANS: Dr. Chester and Dr. Walls. SUBJECTIVE: The patient is a little more alert today. She wants to go home. She remains very confused, little bit less agitated. OBJECTIVE: VITAL SIGNS: Blood pressure today is 126/77 mmHg, pulse of 76 and regular, temperature 98.3 degrees Fahrenheit, and oxygen saturation 98% on room air. HEENT: Head is without trauma. Pupils are reactive. Sclerae nonicteric. The oropharynx is clear. NECK: Supple, no bruits. LUNGS: Otherwise, clear to auscultation. CARDIOVASCULAR: Showed regular heart tones. No gallops. ABDOMEN: Soft, no guarding or rebound tenderness. EXTREMITIES: Showed no edema or cyanosis. NEUROLOGIC: She is very agitated, remains confused. She has cortical blindness. SKIN: Warm and dry. ASSESSMENT: 1. A 64-year-old female with profound dementia and behavioral issues. 2. COVID-positive coronavirus swab from the [facility]. She remains asymptomatic. 3. Recent Clostridium difficile colitis, treated. 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 5. Progressive dementia, memory loss and paranoia. PLAN: 1. Psychiatric meds reviewed. 2. She has had 2 negative swabs. 3. Working on placement after the holiday weekend. DONATO CHESTER MD DR: KENDRICK/evan JOB#: [id number] / [id number]
[2020-04-04] MEDS: ACETAMINOPHEN 325 MG TABLET PO PRN ×2 (16:05→23:33)
[2020-04-04 19:43] VITALS: BP 138/66
[2020-04-04] MEDS: traZODone 100 MG TABLET. PO PRN (20:32)
[2020-04-04] MEDS: MIRTAZAPINE 7.5 MG TABLET. PO SCH (20:32)
--- NOTE | 2020-04-04 21:47 | NUR ---
Pt yelling at and conversing while no one else was in the room at change of shift. Pt has hallucinations of objects and people and grasping at the air while lying supine in bed. While trying to adjust pt head on the pillow she screamed," Don't move the tickles!" Unable to identify a single source of pain or verbalize quality and character. Tylenol given for pain. Pt took crushed medications in yogurt, followed by 1/2 package of cheese crackers and water through a straw. Brushed pt's teeth. Pt unable to follow directions to attempt herself or to hold mouth open. Pt continued to converse while eating and teeth were brushed. Pt did attempt to rinse mouth and spit out water, coughing after spitting it out. Pt requested to go to sleep after hygiene. She is resting quietly. Will continue to monitor.
[2020-04-05 07:01] LABS: CALCIUM 9.4 mg/dL (8.5-10.1); CREATININE 0.9 mg/dL (0.6-1.0); GFR 63.2; POTASSIUM 4.5 mmol/L (3.5-5.1)
--- NOTE | 2020-04-05 09:00 | NUR ---
PT IS YELLING LOUD AND CAN BE HEARD AT THE NURSES STATION STATING "MOM, WHERE ARE YOU?" "WELL, THEN FUCK IT!!!" "HEY, YOU GET OUT OF HERE!!!!" PT HAS HALLUCINATIONS AND THINKS SHES TALKING TO PEOPLE IN HER ROOM. PT WAS DIGGING IN HER BRIEF, IT WAS NOTED THAT PT HAD A BOWEL MOVEMENT. PT IS INCONTINENT, BUT SHE SOMETIMES WILL STATE SHE HAS TO USE THE RESTROOM. WILL CTM.
[2020-04-05] MEDS: LACTOBACILLUS RHAMNOSUS GG 1 CAPSULE. PO SCH ×2 (09:57→20:54)
[2020-04-05] MEDS: POTASSIUM CHLORIDE 20 MEQ TABLET.ER. PO SCH ×2 (09:57→18:23)
[2020-04-05] MEDS: NICOTINE 7MG PATCH. TD SCH (09:57)
[2020-04-05] MEDS: OLANZapine 5 MG TABLET PO SCH (09:57)
[2020-04-05] MEDS: VANCOMYCIN 125 MG/2.5 ML ORAL SOLUTION. PO SCH ×4 (09:58→20:56)
[2020-04-05] MEDS: ENOXAPARIN 40 MG/0.4 ML SYRINGE. SQ SCH (09:58)
[2020-04-05] MEDS: NYSTATIN TOPICAL POWDER 15GM BOTTLE. TP SCH ×2 (09:58→20:56)
[2020-04-05 10:26] VITALS: BP 128/77
--- NOTE | 2020-04-05 11:47 | PN ---
DATE: 04/05/2020 ATTENDING PHYSICIAN: Dr. Chester. SUBJECTIVE: The patient is alert, but she is agitated. She is confused. She wants to go home. OBJECTIVE FINDINGS: VITAL SIGNS: Her blood pressure today is 128/77 mmHg, pulse 88 and regular, temperature 97.9 degrees Fahrenheit, and oxygen saturations are 96% on room air. HEENT: Head is without trauma. Pupils are reactive. Sclerae nonicteric. Oropharynx clear. NECK: Supple, no bruits. LUNGS: Clear. CARDIOVASCULAR: Showed regular heart tones. No gallops. ABDOMEN: Soft. EXTREMITIES: Without edema or cyanosis. NEUROLOGIC FINDINGS: She is bedridden. She is cortically blind. She is very confused and agitated. SKIN: Warm and dry. PERTINENT LABORATORY DATA: Electrolytes all within normal range. ASSESSMENT: 1. A 64-year-old female with profound dementia with behavioral issues. 2. COVID-19 coronavirus positive swab. Her last 2 swabs have been negative and she remains asymptomatic. 3. Recent Clostridium difficile colitis, treated. 4. Posterior cortical atrophy. She is legally blind. 5. Memory loss and paranoia. PLAN: 1. Psychiatric meds reviewed. 2. She already has 2 negative swabs. 3. We are working on placement after the holiday weekend. DONATO CHESTER MD DR: KENDRICK/evan JOB#: [id number] / [id number]
[2020-04-05] MEDS: ACETAMINOPHEN 325 MG TABLET PO PRN (18:24)
[2020-04-05 19:13] VITALS: BP 99/83
[2020-04-05] MEDS: traZODone 100 MG TABLET. PO PRN (20:55)
[2020-04-05] MEDS: MIRTAZAPINE 7.5 MG TABLET. PO SCH (20:55)
[2020-04-06] MEDS: HALOPERIDOL 5 MG TABLET PO PRN (01:49)
--- NOTE | 2020-04-06 10:00 | NUR ---
PT WAS FOUND STANDING IN HER ROOM DIGGING IN HER BRIEF, THERE WAS BM ALL OVER HER HANDS, AND BED. PT WAS CLEANED UP AND PLACED BACK IN BED WITH CLEAN SHEETS AND A GOWN. WILL CTM.
[2020-04-06] MEDS: LACTOBACILLUS RHAMNOSUS GG 1 CAPSULE. PO SCH ×2 (10:31→20:35)
[2020-04-06] MEDS: OLANZapine 5 MG TABLET PO SCH (10:31)
[2020-04-06] MEDS: POTASSIUM CHLORIDE 20 MEQ TABLET.ER. PO SCH ×2 (10:31→17:17)
[2020-04-06] MEDS: NICOTINE 7MG PATCH. TD SCH (10:32)
[2020-04-06] MEDS: ENOXAPARIN 40 MG/0.4 ML SYRINGE. SQ SCH (10:32)
[2020-04-06] MEDS: NYSTATIN TOPICAL POWDER 15GM BOTTLE. TP SCH ×2 (10:33→21:00)
[2020-04-06] MEDS: VANCOMYCIN 125 MG/2.5 ML ORAL SOLUTION. PO SCH ×4 (10:33→20:36)
--- NOTE | 2020-04-06 10:47 | PN ---
DATE: 04/06/2020 ATTENDING PHYSICIAN: Dr. Chester. SUBJECTIVE: Very calm, no new complaints. She is comfortable. She remains confused. OBJECTIVE FINDINGS: VITAL SIGNS: Her blood pressure today is 128/77 mmHg, pulse 88 and regular, temperature 98.0 degrees Fahrenheit, oxygen saturation 95% on room air. HEENT: Head is without trauma. Pupils are reactive. Sclerae are nonicteric. Oropharynx clear. NECK: Supple. LUNGS: Good breath sounds, otherwise clear. CARDIOVASCULAR: Showed regular heart tones. No gallops. ABDOMEN: Soft, no guarding. EXTREMITIES: Without cyanosis or edema. NEUROLOGIC FINDINGS: She remains bedridden. She is cortically blind. She is confused, but not agitated today. SKIN: Warm and dry. ASSESSMENT: 1. This 64-year-old female with profound dementia and behavioral issues. 2. COVID-19 coronavirus positive swabs from the [facility]. Her last 2 swabs have been negative and she remains asymptomatic. 3. Recent Clostridium difficile colitis, treated. 4. Posterior cortical atrophy, she is legally blind. 5. Memory loss and paranoia. PLAN: 1. Psychiatric meds reviewed. 2. We are working on placement after the holidays. She already has had 2 consecutive negative swabs. DONATO CHESTER MD DR: KENDRICK/evan JOB#: [id number] / [id number]
[2020-04-06 11:42] VITALS: BP 122/77
[2020-04-06 19:18] VITALS: BP 124/74
[2020-04-06] MEDS: MIRTAZAPINE 7.5 MG TABLET. PO SCH (20:35)
[2020-04-06] MEDS: traZODone 100 MG TABLET. PO PRN (20:36)
[2020-04-07] MEDS: POTASSIUM CHLORIDE 20 MEQ TABLET.ER. PO SCH ×2 (07:33→16:20)
[2020-04-07] MEDS: OLANZapine 5 MG TABLET PO SCH (07:33)
[2020-04-07] MEDS: NICOTINE 7MG PATCH. TD SCH (07:34)
[2020-04-07] MEDS: ENOXAPARIN 40 MG/0.4 ML SYRINGE. SQ SCH (07:34)
[2020-04-07] MEDS: LACTOBACILLUS RHAMNOSUS GG 1 CAPSULE. PO SCH ×2 (07:34→19:53)
[2020-04-07] MEDS: VANCOMYCIN 125 MG/2.5 ML ORAL SOLUTION. PO SCH ×4 (07:38→19:54)
[2020-04-07] MEDS: NYSTATIN TOPICAL POWDER 15GM BOTTLE. TP SCH ×2 (09:00→19:54)
[2020-04-07 09:32] VITALS: BP 129/64
--- NOTE | 2020-04-07 09:49 | NUR ---
PATIENT IS ASLEEP THIS AM UPON ASSESSMENT AND BREAKFAST TIME, AROUSAL TO NAME, PATIENT IS A/O X 1 , PATIENT STATED " I NEED TO GO PEE", PATIENT WAS ASSISTED TO BEDSIDE COMMODE WITH ASSIST X1, PATIENT DID VOID AND ALSO HAD A LARGE BM, WAS SOFT/FORMED. PATIENT WAS COMPLIANT WITH MEDICATIONS, ATE BREAKFAST WITH ASSIST. PATIENT WAS CALM AND COOPERATIVE DURING ASSESSMENT AND MORNING ADLS, PATIENT USES INAPPROPRIATE LANGUAGE AT TIMES, SUCH " KISS MY ASS" WITHOUT ANY EPISODES OF YELLING/SCREAMING. PATIENT WAS REDIRECTED , ADVISED TO BE RESPECTFUL AND USE APPROPRIATE LANGUAGE, PATIENT SMILED BACK AND NODDED . PATIENT IS CURRENTLY RESTING COMFORTABLY IN A BED, BED ALARM AND PERSONAL ALARM IS ON. WILL CTM.
[2020-04-07] MEDS: HALOPERIDOL 5 MG TABLET PO PRN (10:44)
--- NOTE | 2020-04-07 12:14 | PN ---
DATE: 04/07/2020 ATTENDING PHYSICIANS: Dr. Walls and Dr. Chester. SUBJECTIVE: The patient is calm today, she is resting comfortably. She has not experienced any discomfort. OBJECTIVE FINDINGS: VITAL SIGNS: Blood pressure today is 129/64 mmHg, pulse 86 and regular, temperature 97.8 degrees Fahrenheit, and her oxygen saturation remained at 99% on room air. HEENT: Head is without trauma. Pupils are reactive. Sclerae nonicteric. She is cortically blind. NECK: Supple, no bruits. LUNGS: Good breath sounds. CARDIOVASCULAR: Showed regular heart tones. ABDOMEN: Soft, nontender. EXTREMITIES: Without edema. NEUROLOGIC FINDINGS: Focally intact. No deficit. She remains pleasantly confused. LABORATORY DATA: Chemistry panel done on 04/05/2020 showed normal BUN and creatinine, electrolytes. ASSESSMENT: 1. This 64-year-old female has COVID-19 positive coronavirus in the [facility]. Her last 2 swabs have been negative and she remains asymptomatic. 2. Profound dementia with behavior issues. 3. Recent Clostridium difficile colitis, treated. 4. Posterior cortical atrophy, she is legally blind. 5. Memory loss and paranoia. PLAN: 1. Psychiatric meds reviewed. 2. She still has severe for quarantine up to 14 days before she can return to her facility. 3. Discharge planning. 4. Diet as tolerated. DONATO CHESTER MD DR: KENDRICK/evan JOB#: [id number] / [id number]
--- NOTE | 2020-04-07 12:59 | NUR ---
DR. AWAN CONSULTED, NEW ORDERS OBTAINED OF [facility]ITA (SEE EMAR) AND LAB ORDERS REPEAT ON 04/10.
--- NOTE | 2020-04-07 14:19 | NUR ---
SW contacted pt dtr, Daphne, to let her know that Dr. Kelley, the nurse on [facility] and SW consulted today and pt will be started on Depakote Sprinkles 125mg q 0900 and 1700. Pt dtr questioned if pt would remain on the Zyprexa and SW would have to follow up with the psychiatrist to see if that is the case. SW described to pt dtr how the interaction for pt was and will follow up once SW knows more about pt medications. Pt dtr is concerned that [facility] won't be able to manage her and asked the SW at [facility] for a list. SW and pt dtr went over the names on that list and SW will plan to inquire if they take [facility] as that will be the payor source for placement. BRIEN will continue to follow up with pt dtr on progress.
[2020-04-07] MEDS: DIVALPROEX 125 MG CAP.SPRINK PO SCH (15:47)
[2020-04-07] MEDS: MIRTAZAPINE 7.5 MG TABLET. PO SCH (19:54)
[2020-04-07] MEDS: traZODone 100 MG TABLET. PO PRN (19:54)
[2020-04-07 20:08] VITALS: BP 96/65
--- NOTE | 2020-04-07 22:03 | PDOC ---
Exam Note: Myke Note: Please also refer to the separate dictated note~for this date of service dictated separately.~Patient seen individually. Discussed the patient with Nursing staff reviewed the chart.~Reviewed interim history and current functioning. Reviewed vital signs,~Labs/ Radiology~and current medications noted below. Continue current treatment with the changes noted in the dictated addendum note Assessment: Vital Signs/I&O: Vital Signs Date Time Temp Pulse Resp B/P (MAP) Pulse Ox O2 Delivery O2 Flow Rate FiO2 04/07/20 20:08 97.9 72 18 96/65 (75) 98 Room Air I & O 04/06/20 04/06/20 04/07/20 15:00 23:00 07:00 Intake Total 140 ml 240 ml Balance 140 ml 240 ml Current Medications: Meds: Current Medications Medications (Trade) Dose Ordered Sig/Shila Route PRN Reason Start Time Stop Time Status Last Admin Dose Admin Divalproex Sodium (Depakote Sprinkles) 125 mg BID94 PO 04/07/20 16:00 04/07/20 15:47 I have reviewed the current psychotropics carefully including drug interactions. Risk benefit ratio favors no change other than as noted in my dictated progress note. Diagnosis: Problems: (1) Impulse control disorder, unspecified (2) Anxiety disorder, unspecified (3) Major neurocognitive disorder (4) Posterior cortical atrophy CARLY AWAN MD Apr 07, 2020 22:03
--- NOTE | 2020-04-08 05:43 | NUR ---
PT sleeping most of the night. PT awake, actively hallucinating, not making sense while talking, unchanged from night before. All rails up with bed alarm applied. Sides padded.
[2020-04-08] MEDS: VANCOMYCIN 125 MG/2.5 ML ORAL SOLUTION. PO SCH ×4 (07:55→20:38)
[2020-04-08] MEDS: OLANZapine 5 MG TABLET PO SCH (07:55)
[2020-04-08] MEDS: LACTOBACILLUS RHAMNOSUS GG 1 CAPSULE. PO SCH ×2 (07:55→20:38)
[2020-04-08] MEDS: DIVALPROEX 125 MG CAP.SPRINK PO SCH ×2 (07:55→16:46)
[2020-04-08] MEDS: POTASSIUM CHLORIDE 20 MEQ TABLET.ER. PO SCH ×2 (07:56→16:48)
[2020-04-08] MEDS: HALOPERIDOL 5 MG TABLET PO PRN ×2 (07:57→14:29)
[2020-04-08] MEDS: ENOXAPARIN 40 MG/0.4 ML SYRINGE. SQ SCH (07:57)
[2020-04-08] MEDS: NICOTINE 7MG PATCH. TD SCH (07:57)
[2020-04-08] MEDS: NYSTATIN TOPICAL POWDER 15GM BOTTLE. TP SCH ×2 (09:00→20:38)
--- NOTE | 2020-04-08 10:09 | PDOC ---
Exam Note: Myke Note: This note is a late entry for 04/07/2020 covers elements not covered in my initial note. Subjective: The patient was seen on telehealth rounds for a follow-up from a psychiatric standpoint since she has been irritable, agitated, appears more confused at times, frequently playing with her bowel movements according to nursing staff. Discussed with Carmen (social services manager) and Lissett VENTURA. The patient is currently C. diff positive. She is currently on Remeron 15 mg h.s. which was increased from 7.5 mg h.s. and she is also on Zyprexa 5 mg a day and 2.5 mg p.r.n. for psychosis and agitation, trazodone 100 mg h.s. p.r.n. and Haldol 2.5 mg q.6h. p.r.n. She has some sleep disturbance and some appetite vacillation but not of significant concern. Review of Systems: She does have posterior cortical atrophy resulting in her significant visual deficit. Ambulation is impaired. No CV, , system symptoms on review. Reliability poor. Mental Status Exam: The patient was seen individually. She is oriented to herself. Insight and judgment, recent and remote memory, attention and concentration, fund of knowledge is poor consistent with her diagnoses. Nevertheless, when I questioned her if she had something to eat, she was able to relate this somewhat to me and perhaps a little better than when I last saw her about a week back on the [facility] where she was being stabilized from a psychiatric standpoint before she had medical deterioration and came down to the Medical/Surgical Floor. Nevertheless, she is somewhat distractible with questionable hallucinations. Laboratory Data: Reviewed. Impression: Major neurocognitive disorder Alzheimer vascular with delusion, depression, behavioral disturbance. Posterior cortical atrophy. Anxiety disorder unspecified. Impulse control disorder unspecified. Psychotic disorder unspecified. Plan: From a psychiatric standpoint, the patient seems to have some behavioral dyscontrol and impulsivity. We will go ahead and start low dose Depakote Sprinkles 125 mg 9 a.m. and 5 p.m. Check CBC, CMP, valproic acid level, ammonia level in 3 days. Continue rest of the above-mentioned psychotropics for now. Consider adding an SSRI as needed for some of her anxiety, obsessive-ruminative behaviors worsening her agitation. Assessment: Vital Signs/I&O: Vital Signs Date Time Temp Pulse Resp B/P (MAP) Pulse Ox O2 Delivery O2 Flow Rate FiO2 04/07/20 20:08 97.9 72 18 96/65 (75) 98 Room Air I & O 04/07/20 04/07/20 04/08/20 15:00 23:00 07:00 Intake Total 1200 ml 290 ml Balance 1200 ml 290 ml Current Medications: Meds: Current Medications Medications (Trade) Dose Ordered Sig/Shila Route PRN Reason Start Time Stop Time Status Last Admin Dose Admin Divalproex Sodium (Depakote Sprinkles) 125 mg BID94 PO 04/07/20 16:00 04/08/20 07:55 I have reviewed the current psychotropics carefully including drug interactions. Risk benefit ratio favors no change other than as noted in my dictated progress note. Diagnosis: Problems: (1) Impulse control disorder, unspecified (2) Anxiety disorder, unspecified (3) Major neurocognitive disorder (4) Posterior cortical atrophy CARLY AWAN MD Apr 08, 2020 10:09
[2020-04-08 11:57] VITALS: BP 132/83
--- NOTE | 2020-04-08 12:12 | NUR ---
NOTIFIED CHER, PTS DAUGHTER, ABOUT MOVING PT TO ICU1. INFORMED HER SHE IS STABLE AND SHE IS NOT ICU STATUS BUT JUST FOR STAFFING PURPOSES.
--- NOTE | 2020-04-08 15:36 | PN ---
DATE: 04/08/2020 SUBJECTIVE: The patient is sitting slightly propped up in her bed, continued to be hallucinating, talking to people that do not exist and does not really interact or follow, answer questions appropriately. She apparently has had a formed stool now. The patient is able to go to the toilet and urinate, but requires assistance. PHYSICAL EXAMINATION: GENERAL: When I examined her, she looked pale, somewhat cachectic, but no jaundice, cyanosis or thyromegaly. No jugular venous distention. No limb edema. VITAL SIGNS: Her heart rate was 98, blood pressure was 132/83, temperature was 97.8, respiratory rate was 18 and oxygen saturation was 98%. HEAD, EYES, EARS, NOSE, AND THROAT: Showed normocephalic, atraumatic. NECK: Supple. HEART: Showed normal first and second heart sounds. No gallop or murmur. CHEST: Clear to auscultation. No crepitation or rhonchi. ABDOMEN: Distended, soft, nontender. NEUROLOGIC: She continued to be extremely confused, hallucinating; however, she is also legally blind. All other cranial nerves are intact. She moves extremities without difficulty. Her intake over the last 24 hours was 380. LABORATORY DATA: Most recent lab work showed a serum sodium 140, potassium 4.5, chloride 107, bicarbonate 28, anion gap of 5, BUN 21, creatinine 0.9, estimated GFR was 63 mL per minute. Her glucose was 96 and calcium was 9.4. Her coronavirus PCR was not detected on 03/27/2020 and 03/31/2020. ASSESSMENT: 1. Major neurocognitive disorder, Alzheimer, vascular with delusion, depression, behavioral disturbances due to posterior cortical atrophy, anxiety disorder, unspecified; impulse control disorder; psychotic disorder, unspecified. She has C. diff colitis, initially with sepsis likely due to the same organism. 2. Other medical problems include she has progressive memory loss, paranoia and mood vacillation. 3. Right hip hemiarthroplasty with poor mobility. 4. His D-dimer was extremely high; however, CT angio was negative for pulmonary emboli and Doppler ultrasound was negative for DVT. PLAN: To continue with oral vancomycin. Continue nutritional support. Continue with DVT prophylaxis. Continue with physical and occupational therapy. Continue with all psychotropic medication as recommended by psychiatrist. BALAJI ISRAEL MD DR: Genia JOB#: [id number] / [id number]
--- NOTE | 2020-04-08 16:30 | NUR ---
PT has been resistant to care most of day. Pt is word salad and unable to comprehend basic commands. PT is able to ambulate with assistance to the bathroom and void on her own. In bed pt continues to try to get up without assistance, yells out inappropriate words with any attempt to redirect unsuccessful. Dr Kelley was called and made some changes to her medications. Dr Walls was unable to successfully asses patient considering she is unable to communicate due to her hallucinations. PT reports seeing her daughter, animals, kids, and she constantly is 'smoking a cigarette' and wanting to go outside or home. Most of the time she is unable to be oriented or redirected from behaviors. She hits and kicks when trying to keep patient safe in her bed. Will continue to monitor closely. Maira VENTURA
[2020-04-08] MEDS: traZODone 50 MG TABLET. PO SCH (16:45)
[2020-04-08 19:52] VITALS: BP 103/57
[2020-04-08] MEDS: traZODone 100 MG TABLET. PO PRN (20:38)
[2020-04-08] MEDS: MIRTAZAPINE 7.5 MG TABLET. PO SCH (20:38)
--- NOTE | 2020-04-08 21:58 | PDOC ---
Exam Note: Myke Note: Please also refer to the separate dictated note~for this date of service dictated separately.~Patient seen individually. Discussed the patient with Nursing staff reviewed the chart.~Reviewed interim history and current functioning. Reviewed vital signs,~Labs/ Radiology~and current medications noted below. Continue current treatment with the changes noted in the dictated addendum note Assessment: Vital Signs/I&O: Vital Signs Date Time Temp Pulse Resp B/P (MAP) Pulse Ox O2 Delivery O2 Flow Rate FiO2 04/08/20 19:52 97.4 82 20 103/57 (72) 100 Room Air I & O 04/07/20 04/07/20 04/08/20 15:00 23:00 07:00 Intake Total 1200 ml 290 ml Balance 1200 ml 290 ml Current Medications: Meds: Current Medications Medications (Trade) Dose Ordered Sig/Shila Route PRN Reason Start Time Stop Time Status Last Admin Dose Admin Trazodone HCl (Desyrel) 12.5 mg 0900,1300,1700 PO 04/08/20 17:00 04/08/20 16:45 I have reviewed the current psychotropics carefully including drug interactions. Risk benefit ratio favors no change other than as noted in my dictated progress note. Diagnosis: Problems: (1) Impulse control disorder, unspecified (2) Anxiety disorder, unspecified (3) Major neurocognitive disorder (4) Posterior cortical atrophy CARLY AWAN MD Apr 08, 2020 21:58
[2020-04-09] MEDS: ACETAMINOPHEN 325 MG TABLET PO PRN ×3 (00:27→21:59)
[2020-04-09] MEDS: HALOPERIDOL 5 MG TABLET PO PRN ×3 (00:27→19:19)
--- NOTE | 2020-04-09 00:39 | NUR ---
Pt has not slept this shift. Irritable and continually yelling out. Restless in bed and attempting to put legs over side rail, agitated with redirection. Pt with active auditory hallucinations, conversing in word salad with someone who is not there. PRN zyprexa and haldol administered without much improvement. 1:1 staff remains at bedside for safety.
[2020-04-09] MEDS: NYSTATIN TOPICAL POWDER 15GM BOTTLE. TP SCH ×2 (09:00→20:27)
[2020-04-09 10:22] VITALS: BP 117/67
[2020-04-09] MEDS: LACTOBACILLUS RHAMNOSUS GG 1 CAPSULE. PO SCH ×2 (10:36→20:26)
[2020-04-09] MEDS: OLANZapine 5 MG TABLET PO SCH (10:37)
[2020-04-09] MEDS: traZODone 50 MG TABLET. PO SCH ×3 (10:37→18:35)
[2020-04-09] MEDS: POTASSIUM CHLORIDE 20 MEQ TABLET.ER. PO SCH ×2 (10:38→18:35)
[2020-04-09] MEDS: DIVALPROEX 125 MG CAP.SPRINK PO SCH ×2 (10:41→18:35)
[2020-04-09] MEDS: NICOTINE 7MG PATCH. TD SCH (10:42)
[2020-04-09] MEDS: ENOXAPARIN 40 MG/0.4 ML SYRINGE. SQ SCH (10:42)
[2020-04-09] MEDS: VANCOMYCIN 125 MG/2.5 ML ORAL SOLUTION. PO SCH ×4 (10:45→20:26)
--- NOTE | 2020-04-09 11:57 | NUR ---
BRIEN contacted Daphne, pt dtr, to let her know that [facility] has approved for pt to be admitted to them. Quarantine ends on Monday; however they will need to take pt on Monday to allow for another covoid test to be completed and work on getting her a private room for the Memory Care unit. BRIEN is working with their SW/Admissions and will continue to keep Daphne up to date. BRIEN gave Daphne an update on how pt is doing; which notedly was not good as she did not sleep well and is having significant behaviors surrounding her delusions and being resistive to nursing cares at time. Pt is to get her VPA completed tomorrow morning and more than likely her Depakote will be adjusted. Again, tentatively, pt will have a discharge plan to [facility] on Sunday 04/15.
[2020-04-09 19:47] VITALS: BP 123/69
--- NOTE | 2020-04-09 20:19 | PN ---
DATE: 04/09/2020 SUBJECTIVE: The patient is resting, slightly propped up in bed, in no apparent distress. She continued to be confused and talking to people that are not there, does not interact in conversation; however, she seemed to be a little bit calmer today, although she has received Haldol and Zyprexa. PHYSICAL EXAMINATION: GENERAL: When I examined her this afternoon, she looked pale, cachectic but no jaundice, cyanosis or thyromegaly. No jugular venous distention. No limb edema. VITAL SIGNS: Her heart rate was 89, blood pressure was 117/67, her temperature was 97.4, respiratory rate was 20, and oxygen saturation was 100% on room air. The rest of clinical exam is stable. LABORATORY DATA: Her most recent lab work showed a serum sodium 140, potassium 4.5, chloride 107, bicarbonate 28, anion gap of 5, BUN 21, creatinine 0.9, estimated GFR was 63 mL per minute. Her glucose was 96, calcium was 9.4. ASSESSMENT: 1. This is a 64-year-old female, who has [facility]. Her last 2 swabs have been negative and she continued to be asymptomatic. 2. Profound dementia with behavioral disturbances. 3. Recent Clostridium difficile colitis, treated. 4. Posterior cortical atrophy. She is legally blind. 5. Memory loss and paranoid. PLAN: To continue on psychotropic medication. My plan is to consult the physical therapist and repeat her lab works tomorrow. BALAJI ISRAEL MD DR: MELISSA/evan JOB#: [id number] / [id number]
[2020-04-09] MEDS: traZODone 100 MG TABLET. PO PRN ×2 (20:26→21:59)
[2020-04-09] MEDS: MIRTAZAPINE 7.5 MG TABLET. PO SCH (20:26)
--- NOTE | 2020-04-09 21:43 | PDOC ---
Exam Note: Myke Note: This note is a late entry for 04/08/2020 covers elements not covered in my initial note. Subjective: I had a call from the nursing staff in the ICU. The patient was evaluated via telehealth services. She is continuing to have ongoing agitation, yelling, mood lability, very disruptive in the ICU. She has been started on Depakote which we did the day before but behaviors persist, somewhat unmanageable, unable to be maintained in the ICU. Review of Systems: Significant for visual impairment due to posterior cortical atrophy. Impaired ambulation. No CV, , ENT system symptoms on review. Mental Status Exam: As reviewed with nursing staff, she remains confused. Insight and judgment, recent and remote memory, attention and concentration, fund of knowledge is poor consistent with her diagnoses. She continues to have some intermittent visual misperceptions worsening her agitation. Laboratory Data: Reviewed. Impression: Major neurocognitive disorder Alzheimer vascular with delusion, depression, behavioral disturbance. Posterior cortical atrophy. Anxiety dis order unspecified. Impulse control disorder unspecified. Plan: Continue psychotropics from initial note including Depakote which was initiated on 04/07. Check CBC, CMP, valproic acid level, ammonia level in 2 days and start trazodone 12.5 mg 9 a.m., 1 p.m. and 5 p.m. to help with agitation, anxiety, mood lability, worsening of behaviours. We will make further adjustments as clinically indicated. Assessment: Vital Signs/I&O: Vital Signs Date Time Temp Pulse Resp B/P (MAP) Pulse Ox O2 Delivery O2 Flow Rate FiO2 04/09/20 19:47 97.6 103 20 123/69 (87) 99 Room Air I & O 04/08/20 04/08/20 04/09/20 15:00 23:00 07:00 Intake Total 425 ml 520 ml Balance 425 ml 520 ml Current Medications: I have reviewed the current psychotropics carefully including drug interactions. Risk benefit ratio favors no change other than as noted in my dictated progress note. Diagnosis: Problems: (1) Impulse control disorder, unspecified (2) Anxiety disorder, unspecified (3) Major neurocognitive disorder (4) Posterior cortical atrophy CARLY AWAN MD Apr 09, 2020 21:43
--- NOTE | 2020-04-10 02:05 | NUR ---
Pt awake in bed, restless and yelling out at change of shift. Pt with rambling, word salad speech and unable to follow simple/basic commands. Pt attempting to get up or out of bed without assistance, yelling out that she needs to "go smoke a cigarette." Pt agitated and unable to be oriented or redirected from behaviors. Pt with active auditory hallucinations and talking to others not present in room. Pt ambulates with x1 assist to the bathroom to void but unable to perform roger-care independently but also resistive to staff members performing. Pt took HS medications crushed in pudding and also given PRN Zyprexa and Haldol during the night with little improvement to behaviors. 1to1 staff at bedside for safety.
[2020-04-10] MEDS: HALOPERIDOL 5 MG TABLET PO PRN (03:00)
[2020-04-10] MEDS: OLANZapine 5 MG TABLET PO SCH (08:34)
[2020-04-10] MEDS: LACTOBACILLUS RHAMNOSUS GG 1 CAPSULE. PO SCH ×2 (08:34→21:06)
[2020-04-10] MEDS: DIVALPROEX 125 MG CAP.SPRINK PO SCH ×2 (08:34→18:01)
[2020-04-10] MEDS: POTASSIUM CHLORIDE 20 MEQ TABLET.ER. PO SCH ×2 (08:34→18:01)
[2020-04-10] MEDS: NICOTINE 7MG PATCH. TD SCH (08:35)
[2020-04-10] MEDS: CHOLECALCIFEROL (VITAMIN D3) 50,000 UNIT CAPSULE PO SCH (08:35)
[2020-04-10] MEDS: POLYVINYL ALCOHOL/POVIDONE/PF OPHTH SOLUTION DROPERETTE. OU PRN (08:35)
[2020-04-10] MEDS: ACETAMINOPHEN 325 MG TABLET PO PRN ×2 (08:35→22:39)
[2020-04-10] MEDS: ENOXAPARIN 40 MG/0.4 ML SYRINGE. SQ SCH (08:36)
[2020-04-10] MEDS: NYSTATIN TOPICAL POWDER 15GM BOTTLE. TP SCH ×2 (08:36→21:00)
[2020-04-10] MEDS: traZODone 50 MG TABLET. PO SCH ×3 (08:38→18:01)
[2020-04-10] MEDS: VANCOMYCIN 125 MG/2.5 ML ORAL SOLUTION. PO SCH ×4 (08:38→21:06)
[2020-04-10 09:23] VITALS: BP 142/75
[2020-04-10 13:03] LABS: ALBUMIN 3.1 g/dL (3.4-5.0); ALBUMIN/GLOBULIN RATIO 0.7 (1.0-1.7); ALK PHOS 118 U/L (46-116); ALT (SGPT) 48 U/L (14-59); ANION GAP 7 (6-14); AST (SGOT) 34 U/L (15-37); BLOOD UREA NITROGEN 17 mg/dL (7-20); BUN/CREATININE RATIO 24 (6-20); CALCIUM 9.7 mg/dL (8.5-10.1); CARBON DIOXIDE 30 mmol/L (21-32); CHLORIDE 104 mmol/L (98-107); CREATININE 0.7 mg/dL (0.6-1.0); GFR 84.5; GLUCOSE 131 mg/dL (70-99); POTASSIUM 4.4 mmol/L (3.5-5.1); SODIUM 141 mmol/L (136-145); TOTAL BILIRUBIN 0.2 mg/dL (0.2-1.0); TOTAL PROTEIN 7.4 g/dL (6.4-8.2)
[2020-04-10 13:15] LABS: VAL ACID 22 mcg/mL (50-100)
--- NOTE | 2020-04-10 17:43 | NUR ---
PATIENT IS CURRENTLY A 1:1, PATIENT WAS ASLEEP AT THE BEGINNING OF THE SHIFT UNTIL BREAKFAST ARRIVED. UPON AWAKENING PATIENT STATED " I NEED TO GO PEE", PATIENT WAS ASSISTED TO BEDSIDE COMMODE WITH ASSIST X1, PATIENT DID VOID AND ALSO HAD A LARGE BM, WAS SOFT/FORMED. PATIENT RETURNED BACK TO BED WITH ASSISTANCE X 1 AND WAS COMPLIANT WITH ASSESSMENT, MEDICATIONS AND ATE BREAKFAST WITH ASSIST. PATIENT WAS CALM AND COOPERATIVE MAJORITY OF THE SHIFT WITH AN OCCASIONAL OUTBURST. PATIENT USES INAPPROPRIATE LANGUAGE AT THESE TIMES, SUCH " KISS MY ASS" OR "GET THE HELL OUT OF HERE". PATIENT CAN BE REDIRECTED WITH ADVICE TO BE RESPECTFUL AND TO USE APPROPRIATE LANGUAGE. PATIENT IS CURRENTLY RESTING COMFORTABLY IN A BED WITH THE BED ALARM ACTIVATED AND THE CLEAN UP HELPER BANQUET IN THE ROOM FULFILLING THE 1:1. WILL CTM.
[2020-04-10 20:02] VITALS: BP 135/97
[2020-04-10] MEDS: MIRTAZAPINE 7.5 MG TABLET. PO SCH (21:06)
[2020-04-10] MEDS: traZODone 100 MG TABLET. PO PRN ×2 (21:06→22:39)
--- NOTE | 2020-04-10 22:10 | PN ---
DATE: 04/10/2020 SUBJECTIVE: The patient continued to be very confused, agitated at times. She has had no more diarrhea. The occupational therapy prohibited her and stated that they cannot offer any further help. We did consult the physical therapist to work with her. PHYSICAL EXAMINATION: GENERAL: When I saw her this afternoon, she was resting slightly propped up in her recliner, in no apparent distress. She was somewhat pale. No jaundice, cyanosis or thyromegaly. No jugular venous distention. No limb edema. VITAL SIGNS: Her heart rate was 88, blood pressure was 142/70. NEUROLOGIC: Clinically she is legally blind, but all her cranial nerves are intact. She moves extremities without difficulty. She is unable to use a walker on her own, but she can walk with the handheld. Her intake was 1440, no output was recorded. LABORATORY DATA: The most recent chemistry as of this morning showed a serum sodium of 141, potassium 4.4, chloride 104, bicarbonate 30, anion gap of 7, BUN 17, creatinine 0.7, estimated GFR was 84 mL per minute. Her glucose 131, calcium was 9.7. Total bilirubin, AST, ALT were normal. Alkaline phosphatase slightly elevated. Total protein was 7.4, albumin was 3.1. PLAN: Plan is to continue with oral vancomycin. Continue with DVT prophylaxis. Continue with all her other medication and physical and occupational therapy. BALAJI ISRAEL MD DR: MELISSA/evan JOB#: [id number] / [id number]
[2020-04-11] MEDS: HALOPERIDOL 5 MG TABLET PO PRN (01:12)
--- NOTE | 2020-04-11 06:06 | NUR ---
pt attempting to set up in bed this evening. pt can get up to toilet with 1 assist. pt is rambling on not making any since word salad. pt yelled out few different times through the night. through the night pt was having auditory hallucinations speaking to people who were not there. pt was given prn meds through the night with only a few hrs of sleep total. pt is currently having blood drawn for morning labs.
[2020-04-11 07:40] LABS: BASO % 0 % (0-3); EOS # 0.1 x10^3/uL (0.0-0.7); EOS % 1 % (0-3); HEMOGLOBIN 9.8 g/dL (12.0-15.5); LYMPH % 32 % (24-48); MEAN CORPUSCULAR HEMOGLOBIN 32 pg (25-35); MEAN CORPUSCULAR HGB CONC 33 g/dL (31-37); MEAN CORPUSCULAR VOLUME 97 fL (79-100); MONO # 0.4 x10^3/uL (0.0-1.1); MONO % 6 % (0-9); NEUT # 3.8 x10^3uL (1.8-7.7); NEUT % 61 % (31-73); PLATELET COUNT 324 x10^3/uL (140-400); RED CELL DISTRIBUTION WIDTH 15.4 % (11.5-14.5); WHITE BLOOD COUNT 6.2 x10^3/uL (4.0-11.0)
[2020-04-11] MEDS: NICOTINE 7MG PATCH. TD SCH (09:00)
[2020-04-11] MEDS: NYSTATIN TOPICAL POWDER 15GM BOTTLE. TP SCH ×2 (09:00→20:29)
[2020-04-11] MEDS: DIVALPROEX 125 MG CAP.SPRINK PO SCH ×2 (10:25→17:13)
[2020-04-11] MEDS: traZODone 50 MG TABLET. PO SCH ×3 (10:26→17:13)
[2020-04-11] MEDS: OLANZapine 5 MG TABLET PO SCH (10:27)
[2020-04-11] MEDS: POLYVINYL ALCOHOL/POVIDONE/PF OPHTH SOLUTION DROPERETTE. OU PRN (10:27)
[2020-04-11] MEDS: ENOXAPARIN 40 MG/0.4 ML SYRINGE. SQ SCH (10:27)
[2020-04-11] MEDS: LACTOBACILLUS RHAMNOSUS GG 1 CAPSULE. PO SCH ×2 (10:27→20:07)
[2020-04-11] MEDS: POTASSIUM CHLORIDE 20 MEQ TABLET.ER. PO SCH ×2 (10:27→17:13)
[2020-04-11] MEDS: VANCOMYCIN 125 MG/2.5 ML ORAL SOLUTION. PO SCH ×4 (10:27→20:07)
[2020-04-11 10:30] VITALS: BP 139/70
--- NOTE | 2020-04-11 13:01 | PN ---
DATE: 04/11/2020 SUBJECTIVE: The patient is resting, slightly propped up, sleeping in her recliner, in no apparent distress. The nursing staff stated that she has not slept the whole night last night; however, she participated with physical therapy and has worked with staff in the room. She had had a shower this morning. PHYSICAL EXAMINATION: GENERAL: When I examined her, she was pale, no jaundice, cyanosis or thyromegaly. No jugular venous distention. No limb edema. VITAL SIGNS: Her heart rate was 106, blood pressure was 135/97, temperature was 97, respiratory rate was 20, and oxygen saturation was 99% on room air. HEENT: Showed normocephalic, atraumatic. NECK: Supple. HEART: Showed normal first and second heart sounds. No gallop, rub or murmur. CHEST: Shows central trachea, equal bilateral expansion, air entry, vesicular sounds. No crepitation or rhonchi. ABDOMEN: Scaphoid, soft, nontender. NEUROLOGIC: She was sleepy, but arousable. She is obviously legally blind, but all other cranial nerves are intact. She moves extremities without difficulty. She ambulates with assistance; however, she does not know how to use the walker. Her intake was 1414, no output was recorded. LABORATORY DATA: As of this morning, her white cell count was 6200, hemoglobin 10, hematocrit 30, MCV 97 and platelet count of 324,000. Her serum sodium was 141, potassium 4.4, chloride 104, bicarbonate 30, anion gap of 7, BUN 17, creatinine 0.7. Estimated GFR was 84 mL per minute. Her glucose 131, calcium was 9.7. Total bilirubin, AST, ALT were normal. Alkaline phosphatase slightly elevated. Total protein was 7.4, albumin was 3.1. ASSESSMENT: 1. Major neurocognitive disorder. 2. Posterior cortical atrophy. 3. Anxiety disorder, unspecified. 4. Impulse control, unspecified. 5. Clostridium difficile colitis, resolving. The patient has formed stool and she continued to be on oral vancomycin. 6. The patient has a fall with right hip fracture, status post right hip hemiarthroplasty. PLAN: To obviously continue with her current medication. Continue with DVT prophylaxis. Continue with oral vancomycin. Continue with physical and occupational therapy. BALAJI ISRAEL MD DR: MELISSA/evan JOB#: [id number] / [id number]
[2020-04-11 19:57] VITALS: BP 134/86
[2020-04-11] MEDS: traZODone 100 MG TABLET. PO PRN (20:07)
[2020-04-11] MEDS: MIRTAZAPINE 7.5 MG TABLET. PO SCH (20:07)
[2020-04-12] MEDS: ACETAMINOPHEN 325 MG TABLET PO PRN ×3 (00:30→21:36)
[2020-04-12] MEDS: traZODone 100 MG TABLET. PO PRN ×2 (00:30→21:36)
[2020-04-12 05:39] VITALS: BP 141/94
--- NOTE | 2020-04-12 06:18 | NUR ---
Pt slept 3.5 hours tonight. Pt was restless and impulsive trying to get out of bed when she was awake.
[2020-04-12 08:48] VITALS: BP 113/73
[2020-04-12] MEDS: VANCOMYCIN 125 MG/2.5 ML ORAL SOLUTION. PO SCH ×4 (08:59→21:00)
[2020-04-12] MEDS: LACTOBACILLUS RHAMNOSUS GG 1 CAPSULE. PO SCH ×2 (09:00→21:36)
[2020-04-12] MEDS: OLANZapine 5 MG TABLET PO SCH (09:00)
[2020-04-12] MEDS: ENOXAPARIN 40 MG/0.4 ML SYRINGE. SQ SCH (09:00)
[2020-04-12] MEDS: NYSTATIN TOPICAL POWDER 15GM BOTTLE. TP SCH ×2 (09:00→21:00)
[2020-04-12] MEDS: NICOTINE 7MG PATCH. TD SCH (09:00)
[2020-04-12] MEDS: DIVALPROEX 125 MG CAP.SPRINK PO SCH ×2 (09:00→17:13)
[2020-04-12] MEDS: traZODone 50 MG TABLET. PO SCH ×3 (09:01→17:13)
[2020-04-12] MEDS: POTASSIUM CHLORIDE 20 MEQ TABLET.ER. PO SCH ×2 (09:01→17:13)
[2020-04-12 12:44] VITALS: BP 114/73
--- NOTE | 2020-04-12 15:19 | PN ---
DATE: SUBJECTIVE: The patient is resting, slightly propped up, sleeping comfortably in her recliner. Apparently, she continued to be agitated, restless at times. She is able to walk with a 2-person assist. Her diarrhea has largely subsided. Her bowel movements are solid. PHYSICAL EXAMINATION: GENERAL: When I examined her, she is pale, but no jaundice, cyanosis or thyromegaly. No jugular venous distention. No limb edema. VITAL SIGNS: Her heart rate was 86, blood pressure was 141/94, temperature was 97.6, respiratory rate was 20, and oxygen saturation was 94%. HEAD, EYES, EARS, NOSE AND THROAT: Showed normocephalic, atraumatic. NECK: Supple. HEART: Normal first and second heart sounds. No gallop, rub or murmur. CHEST: Clear to auscultation. No crepitation or rhonchi. ABDOMEN: Distended, soft, nontender. NEUROLOGIC: She is demented, but without any obvious lateralizing sign. She is legally blind; however, all other cranial nerves are intact. She moves extremities without difficulty. Her intake was 1300, no output was recorded. LABORATORY DATA: Her most recent lab work showed a white cell count 6200, hemoglobin 10, hematocrit 30, MCV 97 and platelet count 324,000. Her chemistry showed a serum sodium of 141, potassium 4.4, chloride 104, bicarbonate 30, anion gap of 7, BUN of 17, creatinine 0.7, estimated GFR was 84 mL per minute. Her glucose 131, calcium was 9.7. Total bilirubin, AST, ALT were normal. Alkaline phosphatase slightly elevated. Her serum ammonia was less than 10. Total protein 7.4, albumin was 4.4. ASSESSMENT: 1. Major neurocognitive disorder. 2. Posterior cortical atrophy. 3. Anxiety disorder, unspecified. 4. Impulse control, unspecified. 5. Clostridium difficile colitis, resolved. Her stools are formed and she continued to be on oral vancomycin. 6. The patient has fall with right hip fracture, status post right hip hemiarthroplasty. PLAN: To continue DVT prophylaxis. Continue with oral vancomycin. Continue with physical and occupational therapy. BALAJI ISRAEL MD DR: MELISSA/evan JOB#: [id number] / [id number]
[2020-04-12 19:41] VITALS: BP 96/76
[2020-04-12] MEDS: MIRTAZAPINE 7.5 MG TABLET. PO SCH (21:36)
[2020-04-13] MEDS: traZODone 100 MG TABLET. PO PRN ×2 (01:13→20:33)
[2020-04-13] MEDS: HALOPERIDOL 5 MG TABLET PO PRN ×2 (01:13→16:54)
[2020-04-13] MEDS: LACTOBACILLUS RHAMNOSUS GG 1 CAPSULE. PO SCH ×2 (07:46→20:33)
[2020-04-13] MEDS: traZODone 50 MG TABLET. PO SCH ×3 (07:47→16:52)
[2020-04-13] MEDS: POTASSIUM CHLORIDE 20 MEQ TABLET.ER. PO SCH ×2 (07:47→16:52)
[2020-04-13] MEDS: DIVALPROEX 125 MG CAP.SPRINK PO SCH ×2 (07:47→16:52)
[2020-04-13] MEDS: VANCOMYCIN 125 MG/2.5 ML ORAL SOLUTION. PO SCH ×4 (07:47→20:33)
[2020-04-13] MEDS: OLANZapine 5 MG TABLET PO SCH (07:47)
[2020-04-13] MEDS: NICOTINE 7MG PATCH. TD SCH (07:47)
[2020-04-13] MEDS: ENOXAPARIN 40 MG/0.4 ML SYRINGE. SQ SCH (07:48)
[2020-04-13] MEDS: NYSTATIN TOPICAL POWDER 15GM BOTTLE. TP SCH ×2 (09:00→20:34)
[2020-04-13 10:25] VITALS: BP 103/80
--- NOTE | 2020-04-13 16:35 | NUR ---
Spoke with Pt's daughter Daphne Marin with an update about pt status. Pt slept today for a few hours through lunch time. Pt wasn't as restless today as reported from the night. Covid swab today for planned D/C to [facility] on Monday this week. Facility requesting another negative covid swab after last negative being on 03/31/2020/. Dayanara VENTURA
[2020-04-13 19:37] VITALS: BP 144/80
[2020-04-13] MEDS: MIRTAZAPINE 7.5 MG TABLET. PO SCH (20:33)
--- NOTE | 2020-04-13 22:07 | PN ---
DATE: 04/13/2020 SUBJECTIVE: The patient is sitting slightly propped up in her recliner, eating her supper. She ate. She was fed. She is good with finger food, but obviously cannot feed herself. She is able to walk with a 2-person assist. She is unable to use a walker and she was swabbed today for COVID-19. Apparently, she is scheduled to be discharged to [facility]. PHYSICAL EXAMINATION: GENERAL: When I examined her this afternoon, she looked well and was clearly in no apparent respiratory distress. No pallor, jaundice, cyanosis or thyromegaly. No jugular venous distention. No limb edema. VITAL SIGNS: Her heart rate was 88, blood pressure was 103/80, temperature was 97.2, respiratory rate was 16, and oxygen saturation was 98% on room air. HEAD, EYES, EARS, NOSE AND THROAT: Normocephalic and atraumatic. NECK: Supple. HEART: Showed normal first and second heart sounds. No gallop or murmur. CHEST: Clear to auscultation. No crepitation or rhonchi. ABDOMEN: Distended, soft, nontender. No guarding or rigidity. No organomegaly. All hernial orifice intact. Bowel sounds normal. NEUROLOGIC: She is legally blind, but all other cranial nerves are intact. She moves extremities without difficulty. Her intake over the last 24 hours was 1320, no output was recorded. LABORATORY DATA: Her most recent lab work showed a white cell count 6200, hemoglobin 10, hematocrit 30, MCV 97 and platelet count 324,000. Her chemistry showed a serum sodium 141, potassium 4.4, chloride 104, bicarbonate 30, anion gap of 7, BUN 17, and creatinine 0.7. ASSESSMENT: 1. Major neurocognitive disorder. 2. Posterior cortical atrophy. 3. Anxiety, unspecified. 4. Impulse control disorder, unspecified. 5. Clostridium difficile colitis, resolved. Her stools are formed. She continued to be on oral vancomycin. 6. The patient is legally blind. 7. She has fallen before with sustained right hip fracture, status post right hip hemiarthroplasty. PLAN: To continue with DVT prophylaxis. Continue with her psychotropic medication. We probably could discontinue her oral vancomycin. Meanwhile, continue with physical and occupational therapy. She apparently is scheduled to be discharged to Memory Care Unit. BALAJI ISRAEL MD DR: Genia JOB#: [id number] / [id number]
[2020-04-14] MEDS: ACETAMINOPHEN 325 MG TABLET PO PRN ×2 (00:37→18:26)
[2020-04-14] MEDS: OLANZapine 5 MG TABLET PO SCH (07:48)
[2020-04-14] MEDS: traZODone 50 MG TABLET. PO SCH ×3 (07:48→16:40)
[2020-04-14] MEDS: NICOTINE 7MG PATCH. TD SCH (07:48)
[2020-04-14] MEDS: VANCOMYCIN 125 MG/2.5 ML ORAL SOLUTION. PO SCH ×2 (07:48→12:42)
[2020-04-14] MEDS: LACTOBACILLUS RHAMNOSUS GG 1 CAPSULE. PO SCH ×2 (07:48→20:14)
[2020-04-14] MEDS: POTASSIUM CHLORIDE 20 MEQ TABLET.ER. PO SCH ×2 (07:48→16:40)
[2020-04-14] MEDS: DIVALPROEX 125 MG CAP.SPRINK PO SCH ×2 (07:48→16:39)
[2020-04-14] MEDS: ENOXAPARIN 40 MG/0.4 ML SYRINGE. SQ SCH (07:49)
[2020-04-14] MEDS: NYSTATIN TOPICAL POWDER 15GM BOTTLE. TP SCH ×2 (07:50→20:15)
[2020-04-14 08:27] VITALS: BP 120/81
--- NOTE | 2020-04-14 14:30 | NUR ---
BRIEN returned call back to Daphne, to go over pt details for tomorrow. Dahpne reports that she is on her way to sign paperwork right now. BRIEN requested that they discuss transport and let SW know so that nursing can make sure to have everything ready. BRIEN and Daphne went over pt psych medications and Daphne wanted to double check about her clothes. She reports that pt came over in a really gross pair of yellow shorts and would like to bring clothes in either tonight or in the morning so that pt will be able to wear them for her new placement. BRIEN reports that as being fine and informed Daphne that if no one is up front, she would have to push the silver button to notify staff that someone is there. Daphne will plan to swing through on her way to work and drop off clothes. No other concerns were noted at this time.
--- NOTE | 2020-04-14 15:12 | PN ---
DATE: 04/14/2020 SUBJECTIVE: The patient is sitting comfortably in her recliner, in no apparent distress. She continued to be somewhat confused, although less agitated than before. Nursing staff stated that she is generally calmer. She is able to walk with a 2-person assist. She also needs to be fed. PHYSICAL EXAMINATION: GENERAL: When I examined her, she was somewhat pale, but no jaundice, cyanosis or thyromegaly. No jugular venous distention. No lower limb edema. VITAL SIGNS: Her heart rate was 88, blood pressure was 120/81, temperature was 98, respiratory rate was 16 and oxygen saturation was 97% on room air. HEAD, EYES, EARS, NOSE AND THROAT: Showed normocephalic, atraumatic. NECK: Supple. HEART: Showed normal first and second heart sounds. No gallop, rub or murmur. CHEST: Clear to auscultation. No crepitation or rhonchi. ABDOMEN: Distended, soft, nontender. NEUROLOGIC: She is legally blind. All other cranial nerves are intact. She moves extremities without difficulty. Her intake and output are incompletely recorded. LABORATORY DATA: Her most recent lab work showed a serum sodium 141, potassium 4.4, chloride 104, bicarbonate 30, anion gap of 7, BUN 17, creatinine 0.7, hemoglobin 10, hematocrit 30 with normal white cell count and platelets. ASSESSMENT: 1. Major neurocognitive disorder. 2. Posterior cortical atrophy. 3. Anxiety, unspecified. 4. Impulse control disorder, unspecified. 5. Clostridium difficile colitis, resolved. Her stools are formed. She continues to be on oral vancomycin. 6. The patient is legally blind. 7. She has fallen and has sustained right hip fracture, status post right hip hemiarthroplasty. PLAN: Continue with DVT prophylaxis. Continue with her psychotropic medication. She has received 2 weeks of vancomycin, we can discontinue that and apparently, she is scheduled to be discharged to recovery care unit tomorrow. BALAJI ISRAEL MD DR: MELISSA/evan JOB#: [id number] / [id number]
[2020-04-14] MEDS: HALOPERIDOL 5 MG TABLET PO PRN ×2 (16:40→22:48)
[2020-04-14] MEDS: traZODone 100 MG TABLET. PO PRN ×2 (20:15→22:48)
[2020-04-14] MEDS: MIRTAZAPINE 7.5 MG TABLET. PO SCH (20:15)
[2020-04-14 21:10] VITALS: BP 134/64
[2020-04-15] MEDS: OLANZapine 5 MG TABLET PO SCH (08:39)
[2020-04-15] MEDS: LACTOBACILLUS RHAMNOSUS GG 1 CAPSULE. PO SCH (08:39)
[2020-04-15] MEDS: DIVALPROEX 125 MG CAP.SPRINK PO SCH (08:40)
[2020-04-15] MEDS: ENOXAPARIN 40 MG/0.4 ML SYRINGE. SQ SCH (08:40)
[2020-04-15] MEDS: POTASSIUM CHLORIDE 20 MEQ TABLET.ER. PO SCH (08:40)
[2020-04-15] MEDS: traZODone 50 MG TABLET. PO SCH ×2 (08:41→12:59)
[2020-04-15] MEDS: NICOTINE 7MG PATCH. TD SCH (08:50)
[2020-04-15] MEDS: NYSTATIN TOPICAL POWDER 15GM BOTTLE. TP SCH (09:00)
[2020-04-15 09:44] VITALS: BP 99/64
--- NOTE | 2020-04-15 14:17 | NUR ---
NURSING NOTE: DISCHARGE PT DISCHARGED TO [facility] AT 1410 VIA TRANSPORT TEAM IN . REPORT CALLED TO ARSEN AT [facility]. PT DAUGHTER CHER NOTIFIED OF DISCHARGE. DISCHARGE PACKET SENT WITH PATIENT TO FACILITY. LORENZO PEARSON
--- NOTE | 2020-04-15 14:26 | DS ---
DATE OF DISCHARGE: 04/15/2020 ATTENDING PHYSICIAN: Dr. Walls. FINAL DISCHARGE DIAGNOSES: 1. Major neurocognitive disorder. 2. COVID-19 [place] positive swab without symptoms. 3. Posterior cortical atrophy with blindness. 4. Impulse control disorder. 5. Generalized anxiety disorder. 6. Recent Clostridium difficile colitis, treated. 7. The patient is legally blind. HISTORY OF PRESENT ILLNESS: This is a 64-year-old female who was on the [facility] for behavioral impulse control disorders. She tested positive for COVID-19 coronavirus. She was asymptomatic. She was sent here for quarantine and continuation of psych meds. PHYSICAL EXAMINATION: Please see the dictated note. PERTINENT LABORATORY AND X-RAY STUDIES: Prior to discharge, her hemoglobin is maintained at 9.8 g/dL, white count was 6200. Chemistry panel, stable BUN and creatinine, electrolytes. Nonfasting blood sugar 131. Transaminases and alkaline phosphatase and bilirubin were normal. COURSE IN THE HOSPITAL: The patient was transferred to the medical floor. She spent 18 days on the floor, her vital signs are stable. She had no symptoms whatsoever. Home meds were continued. Diet was advanced. Eventually, she had 2 consecutive negative swabs for coronavirus. Arrangements were then made on the 18th hospital day for the patient to go to [facility] in [place]. She had come from [place]. Her discharge meds will include Tylenol, vitamin D3, clotrimazole cream, dronabinol as an appetite suppressant, Remeron, nicotine patch and nystatin, MiraLax and trazodone dose is unchanged. She is a DNR per advanced directives. The patient was then discharged from our hospital in stable condition with explicit instructions and followup care. Total discharge time spent 38 minutes. DONATO CHESTER MD DR: KENDRICK/evan JOB#: [id number] / [id number] BALAJI Zhou MD
== END 2020-04-15 14:20 | DRG 871 ==
LOC: ICU 08:20 → 1 SOUTH 03-28 17:46 → LND 03-31 18:15 → ICU 04-08 09:43 → 1 SOUTH 04-12 18:00
PROVIDERS: ADMIT Internal Medicine; ATTEND Internal Medicine
DX: A41.89 Other specified sepsis (principal); G92 Toxic encephalopathy; U07.1 COVID-19; A04.72 Enterocolitis due to Clostridium difficile, not specified as recurrent; F01.51 Vascular dementia, unspecified severity, with behavioral disturbance; F02.81 Dementia in other diseases classified elsewhere, unspecified severity, with behavioral disturbance; F17.200 Nicotine dependence, unspecified, uncomplicated; F32.9 Major depressive disorder, single episode, unspecified; F41.1 Generalized anxiety disorder; F63.9 Impulse disorder, unspecified; G30.9 Alzheimer's disease, unspecified; H54.8 Legal blindness, as defined in USA; I25.10 Atherosclerotic heart disease of native coronary artery without angina pectoris; M85.80 Other specified disorders of bone density and structure, unspecified site; Z66 Do not resuscitate; Z79.899 Other long term (current) drug therapy; Z88.8 Allergy status to other drugs, medicaments and biological substances; Z74.01 Bed confinement status
CPT/HCPCS: 36415; 71275; 80048; 80053; 80164; 81001; 82140; 83605; 83735; 85025; 85027; 87040; J1650; J2060; J2543; 97116; 97530; J7030; U0003-CS